=== PATIENT | female | born 1935 | race Caucasian/White ===

== ENCOUNTER 2017-03-12 11:39 | Inpatient (IN) | payer MEDICARE ==
[~2017-03-12] VITALS: Ht 157.5 cm; Wt 72.9 kg
[2017-03-12] VITALS (18 sets, daily range): BP systolic 122–167; BP diastolic 77–103; PULSE 90–131; RESP 14–18; TEMP 97.7–98.8; O2SAT 92–97
[~2017-03-12 11:39] MED LIST: ACET-166 PO; AMLO5TAB2 PO; ATOR40TA16 PO; DONE5TAB7 PO; GABA300C5 PO; GLIM2TAB PO; LEVO50TA4 PO; LORA-373 PO; METF1000 PO; METO50TA11 PO; TRAM50TA PO; VENL150T PO
[2017-03-12] MEDS ORDERED: DILTIAZEM HCL 25 MG/5 ML VIAL IV ONE (12:00)
[2017-03-12] MEDS ORDERED: SODIUM CHLORID 0.9% 500 ML INJ 500 ML IV ONE (12:15)
[2017-03-12 12:24] LABS: AUTOMATED NEUTROPHIL # 8.9 TH/MM3 (1.8-7.7); BASOPHIL # 0.1 TH/MM3 (0-0.2); BASOPHIL % 0.6 % (0.0-2.0); EOSINOPHIL # 0.1 TH/MM3 (0-0.4); EOSINOPHIL % 0.4 % (0.0-4.0); HEMATOCRIT 34.6 % (35.0-46.0); HEMO FLAGS DIFF FINAL; LYMPH % 11.1 % (9.0-44.0); LYMPHOCYTE # 1.3 TH/MM3 (1.0-4.8); MEAN CELL VOLUME 86.7 FL (80.0-100.0); MEAN CORPUSCULAR HEMOGLOBIN 27.5 PG (27.0-34.0); MEAN CORPUSCULAR HGB CONC 31.8 % (32.0-36.0); MONO % 8.8 % (0.0-8.0); NEUT % 79.1 % (16.0-70.0); PLATELET COUNT 302 TH/MM3 (150-450); RED BLOOD COUNT 3.99 MIL/MM3 (4.00-5.30); RED CELL DISTRIBUTION WIDTH 15.7 % (11.6-17.2); WHITE BLOOD COUNT 11.3 TH/MM3 (4.0-11.0)
[2017-03-12 12:31] LABS: APTT (PATIENT) 26.1 SEC (24.3-30.1); INTERNATIONAL NORMALIZED RATIO 1.3 RATIO
[2017-03-12] MEDS ORDERED: DAPA1TAB PO (12:37)
[2017-03-12] MEDS ORDERED: CHOL50008 PO (12:37)
--- NOTE | 2017-03-12 12:38 | RADRPT ---
EXAM DATE/TIME: 03/12/2017 12:12 [facility] COMPARISON: No previous studies available for comparison. INDICATIONS : Chest pain, fell out of bed this morning MEDICAL HISTORY : Cardiovascular disease. Diabetes mellitus type II. Hypertension. SURGICAL HISTORY : Appendectomy. Cholecystectomy. Hysterectomy. ENCOUNTER: Initial ACUITY: 1 day PAIN SCORE: 2/10 LOCATION: Bilateral chest FINDINGS: A single view of the chest demonstrates cardiomegaly and increased pulmonary vascularity. Minimal lef t basilar atelectasis/scarring. No consolidation or pleural effusion. Osseous structures are intact. CONCLUSION: 1. Cardiomegaly with increased pulmonary vascularity. 2. Left basilar atelectasis/scarring. Bony Obrien MD on March 12, 2017 at 12:30 Board Certified Radiologist. This report was verified electronically.
[2017-03-12 12:43] LABS: ANION GAP 12 MEQ/L (5-15); BICARBONATE 21.2 MEQ/L (21.0-32.0); BLOOD UREA NITROGEN 33 MG/DL (7-18); CHLORIDE 102 MEQ/L (98-107); GLOMERULAR FILTRATION RATE 32 ML/MIN (>89); MAGNESIUM 1.8 MG/DL (1.5-2.5); POTASSIUM 3.8 MEQ/L (3.5-5.1); SODIUM (NA) 135 MEQ/L (136-145)
--- NOTE | 2017-03-12 12:49 | PD ---
HPI Chief Complaint: Cardiac Complaint Time Seen by Provider: 11:52 Travel History International Travel<30 days: No Contact w/Intl Traveler<30days: No Traveled to known affect area: No History of Present Illness HPI 81yo F with PMH of HTN, HLD, hypothyroidism, DM presents to the ED in afib RVR. Pt was found on the floor at her home by relative and was too weak to get up. Pt does not remember what happened or if she fell from her bed. Pt is AAOx3 and is not complaining of anything. Pt was found in afib in 170s and given cardizem 20mg IV. Pt was in afib in the 130s when she arrived in the ED. Pt given cardizem 23mg IV and HR was in the 80s to 90s. Denies any fever, chest pain, sob, n/v, abdominal pain, focal weakness or numbness. PFSH Past Medical History Anxiety: Yes Depression: Yes Cancer: Yes Cardiac Catheterization: Yes Cardiovascular Problems: Yes (ANGINA) High Cholesterol: Yes Chemotherapy: No Chest Pain: Yes Coronary Artery Disease: Yes Diabetes: Yes Patient Takes Glucophage: No Diminished Hearing: No Gastrointestinal Disorders: Yes (maybe ) Genitourinary: No Hypertension: Yes Musculoskeletal: Yes (CHRONIC BACK PAIN ) Neurologic: Yes (NEUROPATHY) Psychiatric: Yes Reproductive: No Respiratory: No Radiation Therapy: No Thyroid Disease: Yes Influenza Vaccination: Yes ?: Not Menopausal: Yes Past Surgical History Appendectomy: Yes Cholecystectomy: Yes Hysterectomy: Yes Tonsillectomy: Yes Other Surgery: Yes (hysterectomy) Social History Alcohol Use: Yes (RARELY) Tobacco Use: Yes (40 years ago) Substance Use: No Allergies-Medications (Allergen,Severity, Reaction): Coded Allergies: No Known Allergies (Unverified , 03/12/17) Reported Meds & Prescriptions Reported Meds & Active Scripts Active Reported Vitamin D3 (Cholecalciferol) 5,000 Unit Tab 5,000 Units PO DAILY Farxiga (Dapagliflozin) 5 Mg Tab 5 Mg PO DAILY Acetaminophen/Codeine #3 300-30 mg (Acetaminophen W/ Codeine) 1 Tab Tab 1 Tab PO Q8HR Amlodipine (Amlodipine Besylate) 5 Mg Tab 5 Mg PO DAILY Donepezil 5 Mg Tab 5 Mg PO DAILY Gabapentin 300 Mg Cap 300 Mg PO TID Glimepiride 2 Mg Tab 2 Mg PO DAILY Take with breakfast or first main meal Levothyroxine (Levothyroxine Sodium) 50 Mcg Tab 50 Mcg PO DAILY Lorazepam 0.5 Mg Tab 1 Mg PO TID PRN Metformin (Metformin HCl) 1,000 Mg Tab 1,000 Mg PO BIDPC With meals Metoprolol Succinate ER 24 HR (Metoprolol Succinate) 50 Mg Tab 50 Mg PO HS Tramadol (Tramadol HCl) 50 Mg Tab 100 Mg PO Q6HR PRN Venlafaxine ER 24 HR (Venlafaxine HCl) 150 Mg Tab 150 Mg PO DAILY Review of Systems Except as stated in HPI: all other systems reviewed are Neg Physical Exam Narrative GENERAL: 81yo F in mild distress. SKIN: Focused skin assessment warm/dry. HEAD: Atraumatic. Normocephalic. EYES: Pupils equal and round. No scleral icterus. No injection or drainage. ENT: No nasal bleeding or discharge. Mucous membranes pink and moist. NECK: Trachea midline. No JVD. CARDIOVASCULAR: Regular rate and rhythm. No murmur appreciated. RESPIRATORY: No accessory muscle use. Clear to auscultation. Breath sounds equal bilaterally. GASTROINTESTINAL: Abdomen soft, non-tender, nondistended. RECTAL: Yellow stool. Negative hemaprompt. MUSCULOSKELETAL: No obvious deformities. No clubbing. No cyanosis. No edema. NEUROLOGICAL: Awake and alert. No obvious cranial nerve deficits. Motor grossly within normal limits. Normal speech. PSYCHIATRIC: Appropriate mood and affect; insight and judgment normal. Data Data Last Documented VS Vital Signs Date Time Temp Pulse Resp B/P Pulse Ox O2 Delivery O2 Flow Rate FiO2 03/12/17 13:26 102 16 144/99 95 Nasal Cannula 2 03/12/17 11:47 97.7 Orders Diltiazem Inj (Cardizem Inj) (03/12/17 12:00) Basic Metabolic Panel (Bmp) (03/12/17 12:02) Ckmb (Isoenzyme) Profile (03/12/17 12:02) Complete Blood Count With Diff (03/12/17 12:02) Magnesium (Mg) (03/12/17 12:02) Prothrombin Time / Inr (Pt) (03/12/17 12:02) Act Partial Throm Time (Ptt) (03/12/17 12:02) Troponin I (03/12/17 12:02) Chest, Single Ap (03/12/17 12:02) Ecg Monitoring (03/12/17 12:02) Iv Access Insert/Monitor (03/12/17 12:02) Oximetry (03/12/17 12:02) Oxygen Administration (03/12/17 12:02) Urinalysis - C+S If Indicated (03/12/17 12:02) Lactic Acid Sepsis Protocol (03/12/17 12:02) Blood Culture (03/12/17 12:02) Type And Screen (03/12/17 12:02) Sodium Chlorid 0.9% 500 Ml Inj (Ns 500 M (03/12/17 12:15) Ct Brain W/O Iv Contrast(Rout) (03/12/17 ) Vital Signs (Adult) Q15MX4,Q4H (03/12/17 12:53) Manager Drive / Telemetry ROMMEL.Q8H (03/12/17 12:53) Cardiac Rhythm ROMMEL.Q8H (03/12/17 12:53) Notify Dr: Other (03/12/17 12:53) Diltiazem Inj (Cardizem Inj) (03/12/17 13:00) Admit Order (Ed Use Only) (03/12/17 13:43) Consult Cardiology (03/12/17 ) Labs Laboratory Tests Test 03/12/17 12:00 White Blood Count 11.3 TH/MM3 Red Blood Count 3.99 MIL/MM3 Hemoglobin 11.0 GM/DL Hematocrit 34.6 % Mean Corpuscular Volume 86.7 FL Mean Corpuscular Hemoglobin 27.5 PG Mean Corpuscular Hemoglobin 31.8 % Concent Red Cell Distribution Width 15.7 % Platelet Count 302 TH/MM3 Mean Platelet Volume 8.5 FL Neutrophils (%) (Auto) 79.1 % Lymphocytes (%) (Auto) 11.1 % Monocytes (%) (Auto) 8.8 % Eosinophils (%) (Auto) 0.4 % Basophils (%) (Auto) 0.6 % Neutrophils # (Auto) 8.9 TH/MM3 Lymphocytes # (Auto) 1.3 TH/MM3 Monocytes # (Auto) 1.0 TH/MM3 Eosinophils # (Auto) 0.1 TH/MM3 Basophils # (Auto) 0.1 TH/MM3 CBC Comment DIFF FINAL Differential Comment Prothrombin Time 14.0 SEC Prothromb Time International 1.3 RATIO Ratio Activated Partial 26.1 SEC Thromboplast Time Sodium Level 135 MEQ/L Potassium Level 3.8 MEQ/L Chloride Level 102 MEQ/L Carbon Dioxide Level 21.2 MEQ/L Anion Gap 12 MEQ/L Blood Urea Nitrogen 33 MG/DL Creatinine 1.57 MG/DL Estimat Glomerular Filtration 32 ML/MIN Rate Random Glucose 213 MG/DL Lactic Acid Level 2.7 mmol/L Calcium Level 9.3 MG/DL Magnesium Level 1.8 MG/DL Total Creatine Kinase 77 U/L Troponin I LESS THAN 0.02 NG/ML Blood Type O POSITIVE Antibody Screen NEGATIVE Blood Bank Comment MDM Medical Decision Making Medical Screen Exam Complete: Yes Emergency Medical Condition: Yes Interpretation(s) EKG: Afib at 126bpm. Normal axis. Laboratory Tests Test 03/12/17 12:00 White Blood Count 11.3 TH/MM3 (4.0-11.0) Red Blood Count 3.99 MIL/MM3 (4.00-5.30) Hemoglobin 11.0 GM/DL (11.6-15.3) Hematocrit 34.6 % (35.0-46.0) Mean Corpuscular Volume 86.7 FL (80.0-100.0) Mean Corpuscular Hemoglobin 27.5 PG (27.0-34.0) Mean Corpuscular Hemoglobin 31.8 % Concent (32.0-36.0) Red Cell Distribution Width 15.7 % (11.6-17.2) Platelet Count 302 TH/MM3 (150-450) Mean Platelet Volume 8.5 FL (7.0-11.0) Neutrophils (%) (Auto) 79.1 % (16.0-70.0) Lymphocytes (%) (Auto) 11.1 % (9.0-44.0) Monocytes (%) (Auto) 8.8 % (0.0-8.0) Eosinophils (%) (Auto) 0.4 % (0.0-4.0) Basophils (%) (Auto) 0.6 % (0.0-2.0) Neutrophils # (Auto) 8.9 TH/MM3 (1.8-7.7) Lymphocytes # (Auto) 1.3 TH/MM3 (1.0-4.8) Monocytes # (Auto) 1.0 TH/MM3 (0-0.9) Eosinophils # (Auto) 0.1 TH/MM3 (0-0.4) Basophils # (Auto) 0.1 TH/MM3 (0-0.2) CBC Comment DIFF FINAL Differential Comment Prothrombin Time 14.0 SEC (9.8-11.6) Prothromb Time International 1.3 RATIO Ratio Activated Partial 26.1 SEC Thromboplast Time (24.3-30.1) Sodium Level 135 MEQ/L (136-145) Potassium Level 3.8 MEQ/L (3.5-5.1) Chloride Level 102 MEQ/L (98-107) Carbon Dioxide Level 21.2 MEQ/L (21.0-32.0) Anion Gap 12 MEQ/L (5-15) Blood Urea Nitrogen 33 MG/DL (7-18) Creatinine 1.57 MG/DL (0.50-1.00) Estimat Glomerular Filtration 32 ML/MIN (>89) Rate Random Glucose 213 MG/DL (74-106) Lactic Acid Level 2.7 mmol/L (0.4-2.0) Calcium Level 9.3 MG/DL (8.5-10.1) Magnesium Level 1.8 MG/DL (1.5-2.5) Total Creatine Kinase 77 U/L (26-192) Troponin I LESS THAN 0.02 NG/ML (0.02-0.05) Blood Type O POSITIVE Antibody Screen NEGATIVE Blood Bank Comment Last Impressions Chest X-Ray 03/12/17 1202 Signed Impressions: Service Date/Time: Sunday, March 12, 2017 12:12 - CONCLUSION: 1. Cardiomegaly with increased pulmonary vascularity. 2. Left basilar atelectasis/scarring. Bony Obrien MD Head CT 03/12/17 0000 Signed Impressions: Service Date/Time: Sunday, March 12, 2017 13:09 - CONCLUSION: Negative for an acute process. Kee Robles MD FACR Differential Diagnosis Infectious cause vs. UTI vs. dehydration vs. Narrative Course 81yo F with no history of afib here with afib in RVR. Pt required 2 IV doses of cardizem and now is on a cardizem drip. Rate is controlled on cardizem drip. BP is stable. Labs reviewed, mild leukocytosis at 11.3. BUN/creatinine also mildly elevated. Lactic acid mildly elevated at 2.7. CXR showed cardiomegaly. Left basilar atelectasis. CT brain negative. I discussed case with Dr. Thorne and pt is accepted under her care in [facility]. Placed consult for Dr. Eaton. Critical Care Narrative Aggregate critical care time was 40 minutes. Time to perform other separately billable procedures was not included in the critical care time. My time did not include minutes spent treating any other patients simultaneously or on activities that did not directly contribute to the patient's treatment. The services I provided to this patient were to treat and/or prevent clinically significant deterioration that could result in: cardiovascular collapse or . I provided critical care services requiring my management, as noted below: Chart data review, documentation time, medication orders and management, vital sign assessments/reviewing monitor data, ordering and reviewing lab tests, ordering and interpreting/reviewing x-rays and diagnostic studies, care of the patient and discussion of the patient with the admitting physicians. Diagnosis Primary Impression: Atrial fibrillation with RVR Admitting Information Admitting Physician Requests: it Marlen Feliz DO March 12, 2017 12:49
[2017-03-12 12:58] LABS: CREATINE KINASE 77 U/L (26-192)
[2017-03-12] MEDS ORDERED: DILTIAZEM INJ 125 MG in SODIUM CHLORIDE 0.9% INJ 100 ML IV SCH (13:00)
--- NOTE | 2017-03-12 13:23 | RADRPT ---
EXAM DATE/TIME: 03/12/2017 13:09 [facility] COMPARISON: No previous studies available for comparison. INDICATIONS : Patient found down. Weakness, cool and clammy. Patient was in a-fib when evac arrived. RADIATION DOSE: 37.97 CTDIvol (mGy) MEDICAL HISTORY : Cardiovascular disease. Hypertension. SURGICAL HISTORY : Appendectomy. Cholecystectomy.Hysterectomy. ENCOUNTER: Initial ACUITY: 1 day PAIN SCALE: 6/10 LOCATION: cranial TECHNIQUE: Multiple contiguous axial images were obtained of the head. Using automated exposure control and adj ustment of the mA and/or kV according to patient size, radiation dose was kept as low as reasonably a chievable to obtain optimal diagnostic quality images. FINDINGS: CEREBRUM: The ventricles are normal for age. No evidence of midline shift, mass lesion, hemorrhage or acute in farction. No extra-axial fluid collections are seen. POSTERIOR FOSSA: The cerebellum and brainstem are intact. The 4th ventricle is midline. The cerebellopontine angle i s unremarkable. EXTRACRANIAL: The visualized portion of the orbits is intact. SKULL: Incidental venous lakes are seen in the diploic space of the occiput. CONCLUSION: Negative for an acute process. Kee Robles MD FACR on March 12, 2017 at 13:20 Board Certified Radiologist. This report was verified electronically.
[2017-03-12 14:16] LABS: LACTIC ACID GHOST NOT REPORTABLE
[2017-03-12] MEDS ORDERED: NALOXONE HCL 0.4 MG/ML AMP IV PRN (14:30)
[2017-03-12] MEDS ORDERED: SODIUM CHLORIDE 0.9% FLUSH 10 ML FLUSH IV FLUSH PRN (14:30)
[2017-03-12 14:58] LABS: BLOOD, URINE NEG (NEG); GLUCOSE,URINE 1000 mg/dL (NEG); KETONE, URINE NEG (NEG); NITRITE,URINE NEG (NEG); SQUAMOUS EPITHELIAL CELL URINE <1 /hpf (0-5); URINE COLOR YELLOW (YELLW/STRAW)
[2017-03-12] MEDS ORDERED: DIGOXIN 0.5 MG/2 ML VIAL IV PUSH ONE (15:00)
[2017-03-12 15:01] LABS: COMMENT (UR) CATH-CULT NOT IND; CULTURE IF INDICATED CATH CULTURE NOT IND
[2017-03-12] MEDS ORDERED: ENALAPRIL MALEATE 5 MG TAB PO ONE (17:30)
[2017-03-12] MEDS ORDERED: metFORMIN HCL 500 MG TAB PO SCH (18:00)
[2017-03-12] MEDS ORDERED: GLUCAGON 1 MG/ML VIAL OTHER PRN (18:15)
[2017-03-12] MEDS ORDERED: DEXTROSE 50% IN WATER 50 ML VIAL(D50) IV PUSH PRN (18:15)
--- NOTE | 2017-03-12 18:18 | HHI.HP ---
History of Present Illness Primary Care Physician Dereje Thorne, DO Admission Diagnosis Afib RVR Diagnoses: History of Present Illness pt found at home on floor unknown how long she was there she does not remember evac shows afib rvr eventually controlled with cardizem Review of Systems Neurologic: COMPLAINS OF: Poor Balance Past Family Social History Allergies: Coded Allergies: No Known Allergies (Unverified , 03/12/17) Past Medical History diabetes II htn azds Past Surgical History COLEMAN Reported Medications Reported Meds & Active Scripts Active Reported Vitamin D3 (Cholecalciferol) 5,000 Unit Tab 5,000 Units PO DAILY Farxiga (Dapagliflozin) 5 Mg Tab 5 Mg PO DAILY Acetaminophen/Codeine #3 300-30 mg (Acetaminophen W/ Codeine) 1 Tab Tab 1 Tab PO Q8HR Amlodipine (Amlodipine Besylate) 5 Mg Tab 5 Mg PO DAILY Donepezil 5 Mg Tab 5 Mg PO DAILY Gabapentin 300 Mg Cap 300 Mg PO TID Glimepiride 2 Mg Tab 2 Mg PO DAILY Take with breakfast or first main meal Levothyroxine (Levothyroxine Sodium) 50 Mcg Tab 50 Mcg PO DAILY Lorazepam 0.5 Mg Tab 1 Mg PO TID PRN Metformin (Metformin HCl) 1,000 Mg Tab 1,000 Mg PO BIDPC With meals Metoprolol Succinate ER 24 HR (Metoprolol Succinate) 50 Mg Tab 50 Mg PO HS Tramadol (Tramadol HCl) 50 Mg Tab 100 Mg PO Q6HR PRN Venlafaxine ER 24 HR (Venlafaxine HCl) 150 Mg Tab 150 Mg PO DAILY Active Ordered Medications Inpatient Medications Acetaminophen/ Codeine Phosphate 1 tab 1 tab Q8H PRN PO PAIN; Start 03/12/17 at 15:15 Amlodipine Besylate (Norvasc) 5 mg DAILY PO ; Start 03/13/17 at 09:00 Cholecalciferol (Vitamin D3) 5,000 units DAILY PO ; Start 03/13/17 at 09:00 Digoxin (Lanoxin Inj) 0.25 mg ONCE ONCE IV PUSH Last administered on 03/12/17 15:09; Start 03/12/17 at 15:00; Stop 03/12/17 at 15:01; Status DC Diltiazem HCl 23 mg 23 mg ONCE ONCE IV Last administered on 03/12/17 12:11; Start 03/12/17 at 12:00; Stop 03/12/17 at 12:01; Status DC Diltiazem HCl/ Sodium Chloride (Cardizem Inj/NS Inj) 125 ml @ 0 mls/hr TITRATE IV ; Start 03/12/17 at 17:00 Donepezil HCl (Aricept) 5 mg DAILY PO ; Start 03/13/17 at 09:00 Enalapril Maleate (Vasotec) 5 mg BID PO ; Start 03/12/17 at 21:00 Gabapentin (Neurontin) 300 mg BID PO ; Start 03/12/17 at 21:00 Glimepiride (Amaryl) 2 mg DAILY PO ; Start 03/13/17 at 09:00 Levothyroxine Sodium (Synthroid) 50 mcg DAILY@06 PO ; Start 03/13/17 at 06:00 Lorazepam (Ativan) 1 mg TID PRN PO ANXIETY; Start 03/12/17 at 14:30 Metformin HCl (Glucophage) 1,000 mg BIDPC PO Last administered on 03/12/17t 17: 28; Start 03/12/17 at 18:00 Metoprolol Succinate (Toprol Xl) 50 mg HS PO ; Start 03/12/17 at 21:00 Naloxone HCl (Narcan Inj) 0.4 mg UNSCH PRN IV SEE LABEL COMMENTS; Start at 14:30 Non-Formulary Medication 5 mg DAILY PO BSM; Start 03/13/17 at 09:00; Status UNV Sodium Chloride (NS 500 ml Inj) 500 ml @ 500 mls/hr BOLUS ONCE IV ; Start 03/12 at 12:15; Stop 03/12/17 at 13:14; Status DC Sodium Chloride (NS Flush) 2 ml BID IV FLUSH ; Start 03/12/17 at 21:00 Venlafaxine HCl (Effexor Xr) 150 mg DAILY PO ; Start 03/13/17 at 09:00 Family History bboth parents are with heart disease Social History has not smoked or drank for over 30 years Physical Exam Vital Signs Vital Signs Date Time Temp Pulse Resp B/P Pulse Ox O2 Delivery O2 Flow Rate FiO2 03/12/17 17:00 130 18 167/103 97 03/12/17 17:00 121 03/12/17 16:58 117 03/12/17 15:44 130 16 122/89 96 Nasal Cannula 2 03/12/17 15:09 131 14 122/89 95 Nasal Cannula 2 03/12/17 14:39 Nasal Cannula 2.00 03/12/17 14:34 117 17 147/86 95 Nasal Cannula 2 03/12/17 14:10 123 16 140/87 96 Nasal Cannula 2 03/12/17 13:26 102 16 144/99 95 Nasal Cannula 2 03/12/17 12:12 95 Nasal Cannula 3 03/12/17 12:12 92 16 146/90 95 Nasal Cannula 3 03/12/17 11:51 117 16 146/90 95 Nasal Cannula 3 03/12/17 11:47 97.7 129 16 146/90 92 Physical Exam GENERAL: This is a well-nourished, well-developed patient, in no apparent distress. SKIN: No rashes, ecchymoses or lesions. Cool and dry. HEAD: Atraumatic. Normocephalic. No temporal or scalp tenderness. EYES: Pupils equal round and reactive. Extraocular motions intact. No scleral icterus. No injection or drainage. ENT: Nose without bleeding, purulent drainage or septal hematoma. Throat without erythema, tonsillar hypertrophy or exudate. Uvula midline. Airway patent. NECK: Trachea midline. No JVD or lymphadenopathy. Supple, nontender, no meningeal signs. CARDIOVASCULAR: Irregular rate and rythm RESPIRATORY: Clear to auscultation. Breath sounds equal bilaterally. No wheezes , rales, or rhonchi. GASTROINTESTINAL: Abdomen soft, non-tender, nondistended. No hepato-splenomegaly , or palpable masses. No guarding. MUSCULOSKELETAL: Extremities without clubbing, cyanosis, or edema. No joint tenderness, effusion, or edema noted. No calf tenderness. Negative Homans sign bilaterally. NEUROLOGICAL: Awake and alert. Cranial nerves II through XII intact. Motor and sensory grossly within normal limits. Five out of 5 muscle strength in all muscle groups. Normal speech. Laboratory Laboratory Tests Test 03/12/17 03/12/17 03/12/17 12:00 14:10 15:32 White Blood Count 11.3 Red Blood Count 3.99 Hemoglobin 11.0 Hematocrit 34.6 Mean Corpuscular Volume 86.7 Mean Corpuscular Hemoglobin 27.5 Mean Corpuscular Hemoglobin 31.8 Concent Red Cell Distribution Width 15.7 Platelet Count 302 Mean Platelet Volume 8.5 Neutrophils (%) (Auto) 79.1 Lymphocytes (%) (Auto) 11.1 Monocytes (%) (Auto) 8.8 Eosinophils (%) (Auto) 0.4 Basophils (%) (Auto) 0.6 Neutrophils # (Auto) 8.9 Lymphocytes # (Auto) 1.3 Monocytes # (Auto) 1.0 Eosinophils # (Auto) 0.1 Basophils # (Auto) 0.1 CBC Comment DIFF FINAL Differential Comment Prothrombin Time 14.0 Prothromb Time International 1.3 Ratio Activated Partial 26.1 Thromboplast Time Sodium Level 135 Potassium Level 3.8 Chloride Level 102 Carbon Dioxide Level 21.2 Anion Gap 12 Blood Urea Nitrogen 33 Creatinine 1.57 Estimat Glomerular Filtration 32 Rate Random Glucose 213 Lactic Acid Level 2.7 1.8 Calcium Level 9.3 Magnesium Level 1.8 Total Creatine Kinase 77 Troponin I LESS THAN 0.02 Blood Type O POSITIVE Antibody Screen NEGATIVE Blood Bank Comment Urine Color YELLOW Urine Turbidity CLEAR Urine pH 6.0 Urine Specific Aubrey 1.033 Urine Protein 100 Urine Glucose (UA) 1000 Urine Ketones NEG Urine Occult Blood NEG Urine Nitrite NEG Urine Bilirubin NEG Urine Urobilinogen LESS THAN 2.0 Urine Leukocyte Esterase NEG Urine RBC LESS THAN 1 Urine WBC 1 Urine Squamous Epithelial <1 Cells Urine Bacteria NONE Microscopic Urinalysis Comment CATH-CULT NOT IND Date/Time Procedure Status Source Growth 03/12/17 12:05 Aerobic Blood Culture Received Blood Peripheral Pending 03/12/17 12:05 Anaerobic Blood Culture Received Blood Peripheral Pending Result Diagram: 03/12/17 1200 03/12/17 1200 Imaging Last 24 hours Impressions Chest X-Ray 03/12/17 1202 Signed Impressions: Service Date/Time: Sunday, March 12, 2017 12:12 - CONCLUSION: 1. Cardiomegaly with increased pulmonary vascularity. 2. Left basilar atelectasis/scarring. Bony Obrien MD Head CT 03/12/17 0000 Signed Impressions: Service Date/Time: Sunday, March 12, 2017 13:09 - CONCLUSION: Negative for an acute process. Kee Robles MD FACR Course hr improved with cardizem bp coming down Assessment and Plan Problem List: (1) Diabetes 1.5, managed as type 2 Status: Acute Plan: ss insuline coverage resume po meds (2) Hypertension Status: Acute Plan: continue home meds add cardizem and vasotec (3) New onset a-fib Status: Acute Plan: cardizem and digoxin for rate control will need coag if rhythm persists Assessment and Plan afib rvr stabilized Discussed Condition With patient Dereje Thorne DO March 12, 2017 18:18
[2017-03-12] MEDS: SODIUM CHLORIDE 0.9% FLUSH 10 ML FLUSH IV FLUSH SCH (21:00)
[2017-03-12] MEDS: DILTIAZEM INJ 125 MG in SODIUM CHLORIDE 0.9% INJ 100 ML IV SCH (21:03)
[2017-03-12] MEDS: LOW DOSE INSULIN NOVOLIN REGULAR SUPPLEMENTAL SCALE SQ SCH (21:40)
[2017-03-12] MEDS: ENALAPRIL MALEATE 5 MG TAB PO SCH (21:58)
[2017-03-12] MEDS: GABAPENTIN 300 MG CAP PO SCH (21:59)
[2017-03-12] MEDS: METOPROLOL SUCCINATE 50 MG EXTENDED RELEASE TAB PO SCH (21:59)
[2017-03-12] MEDS ORDERED: CODEINE PO SCH (22:00)
[2017-03-12] MEDS ORDERED: [UNRECOGNIZED DRUG - OTHER] PO SCH (22:00)
[2017-03-12] MEDS ORDERED: ACETAMINOPHEN PO SCH (22:00)
[2017-03-13] VITALS (21 sets, daily range): BP systolic 122–153; BP diastolic 62–85; PULSE 67–134; RESP 16–20; TEMP 97–98; O2SAT 93–97
[2017-03-13] MEDS: ACETAMINOPHEN/CODEINE 300 MG/30 MG TAB PO PRN ×2 (00:26→16:14)
[2017-03-13] MEDS: LORazepam 0.5 MG TAB PO PRN (01:59)
[2017-03-13 05:53] LABS: BICARBONATE 23.3 MEQ/L (21.0-32.0); POTASSIUM 3.7 MEQ/L (3.5-5.1)
[2017-03-13] MEDS: LOW DOSE INSULIN NOVOLIN REGULAR SUPPLEMENTAL SCALE SQ SCH ×4 (06:10→21:46)
[2017-03-13] MEDS: LEVOTHYROXINE SODIUM 50 MCG TAB PO SCH (06:11)
--- NOTE | 2017-03-13 07:46 | HHI.PR ---
Subjective Remarks Patient seen at bedside. Resting comfortably. AFIB at a controlled rate. Alert and oriented to self only. Cooperative Objective Vital Signs Date Time Temp Pulse Resp B/P Pulse Ox O2 Delivery O2 Flow Rate FiO2 03/13/17 06:00 90 03/13/17 05:00 95 03/13/17 04:00 80 03/13/17 03:45 95 Nasal Cannula 2.00 03/13/17 03:45 97.6 75 16 123/68 95 03/13/17 03:17 96 Nasal Cannula 2.00 03/13/17 03:00 71 03/13/17 02:00 67 03/13/17 01:00 78 03/13/17 00:00 89 03/12/17 23:20 95 Nasal Cannula 2.00 03/12/17 23:20 98.5 90 18 133/82 95 03/12/17 23:00 122 03/12/17 22:00 96 03/12/17 21:00 94 03/12/17 20:00 126 03/12/17 19:20 98.8 104 18 141/77 97 03/12/17 19:20 97 Nasal Cannula 2.00 03/12/17 19:00 122 03/12/17 18:00 112 03/12/17 17:00 130 18 167/103 97 03/12/17 17:00 121 03/12/17 16:58 117 03/12/17 15:44 130 16 122/89 96 Nasal Cannula 2 03/12/17 15:09 131 14 122/89 95 Nasal Cannula 2 03/12/17 14:39 Nasal Cannula 2.00 03/12/17 14:34 117 17 147/86 95 Nasal Cannula 2 03/12/17 14:10 123 16 140/87 96 Nasal Cannula 2 03/12/17 13:26 102 16 144/99 95 Nasal Cannula 2 03/12/17 12:12 95 Nasal Cannula 3 03/12/17 12:12 92 16 146/90 95 Nasal Cannula 3 03/12/17 11:51 117 16 146/90 95 Nasal Cannula 3 03/12/17 11:47 97.7 129 16 146/90 92 I/O 03/12/17 03/12/17 03/12/17 03/13/17 03/13/17 03/13/17 07:00 15:00 23:00 07:00 15:00 23:00 Intake Total 440 ml Output Total 175 ml Balance 265 ml Intake Oral 240 ml IV Total 200 ml Output Urine Total 175 ml # Bowel Movements 0 Result Diagram: 03/12/17 1200 03/13/17 0419 Imaging Last 72 hours Impressions Chest X-Ray 03/12/17 1202 Signed Impressions: Service Date/Time: Sunday, March 12, 2017 12:12 - CONCLUSION: 1. Cardiomegaly with increased pulmonary vascularity. 2. Left basilar atelectasis/scarring. Bony Obrien MD Head CT 03/12/17 0000 Signed Impressions: Service Date/Time: Sunday, March 12, 2017 13:09 - CONCLUSION: Negative for an acute process. Kee Robles MD FACR Objective Remarks GENERAL: Alert and cooperative SKIN: Warm and dry. HEAD: Normocephalic. EYES: No scleral icterus. No injection or drainage. NECK: Supple, trachea midline. No JVD or lymphadenopathy. CARDIOVASCULAR: Regular rate and rhythm without murmurs, gallops, or rubs. RESPIRATORY: Breath sounds equal bilaterally. No accessory muscle use. GASTROINTESTINAL: Abdomen soft, non-tender, nondistended. MUSCULOSKELETAL: No cyanosis, or edema. BACK: Nontender without obvious deformity. No CVA tenderness. Medications and IVs Current Medications Medications (Trade) Dose Ordered Sig/Trudy Route Start Time Stop Time Status Last Admin (NS Flush) 2 ml UNSCH PRN IV FLUSH 03/12/17 14:30 (NS Flush) 2 ml BID IV FLUSH 03/12/17 21:00 (Narcan Inj) 0.4 mg UNSCH PRN IV 03/12/17 14:30 (Norvasc) 5 mg DAILY PO 03/13/17 09:00 (Vitamin D3) 5,000 units DAILY PO 03/13/17 09:00 (Aricept) 5 mg DAILY PO 03/13/17 09:00 (Neurontin) 300 mg BID PO 03/12/17 21:00 03/12/17 21:59 (Amaryl) 2 mg DAILY PO 03/13/17 09:00 (Synthroid) 50 mcg DAILY@06 PO 03/13/17 06:00 03/13/17 06:11 (Ativan) 1 mg TID PRN PO 03/12/17 14:30 03/13/17 01:59 (Toprol Xl) 50 mg HS PO 03/12/17 21:00 03/12/17 21:59 (Effexor Xr) 150 mg DAILY PO 03/13/17 09:00 Acetaminophen/ Codeine Phosphate 1 tab 1 tab Q8H PRN PO 03/12/17 15:15 03/13/17 00:26 (Cardizem Inj/NS Inj) 125 ml @ 0 mls/hr TITRATE IV 03/12/17 17:00 03/12/17 21:03 (Vasotec) 5 mg BID PO 03/12/17 21:00 03/12/17 21:58 (D50w (Vial) Inj) 25 ml UNSCH PRN IV PUSH 03/12/17 18:15 (Glucagon Inj) 1 mg UNSCH PRN OTHER 03/12/17 18:15 Assessment and Plan Problem List: (1) Atrial fibrillation with RVR Status: Acute Plan: On Cardizem gtt. Rate controlled in 70's. Cardiology consulted. (2) Diabetes 1.5, managed as type 2 Status: Chronic Plan: Continue current medication. BS AC and HS. BS 141-213. Diet changed to diabetic diet. (3) Hypertension Status: Chronic Plan: Continue current medication regimen. B/P well controlled at 123/66 (4) Hypothyroid Status: Chronic Plan: On replacement . TSH, T4 level ordered (5) Hyperlipidemia Status: Chronic Plan: Not on statin. Lipid panel ordered for AM (6) Alzheimer disease Status: Chronic Plan: Patient alert to self only. Cooperative. Head CT with no acute findings. Continue Aricept (7) Fall Status: Acute Plan: Patient was found on floor prior to coming in CPK ordered for this AM. IVF ordered. Assessment and Plan Assessment and plan discussed with Dr. Thorne Labs ordered. Awaiting cardiology assessment Discussed Condition With Nursing Discharge Planning Will need to assess. Currently lives with daughter. Physician Attestation The exam, history, and the medical decision-making described in the above note were completed with the assistance of the mid-level provider. I reviewed and agree with the findings presented. I attest that I had a [id number] encounter with the patient on the same day, and personally performed and documented my assessment and findings in the medical record. Lesvia Grayson March 13, 2017 07:46 Dereje Thorne DO March 13, 2017 22:21
--- NOTE | 2017-03-13 07:46 | MB ---
cc: JAY JAYTEJA DATE OF CONSULTATION 03/12/2017 REASON FOR CONSULTATION Ms. Castillo is a pleasant 81 year-old female who was found by her daughter at home on the floor. She was found to be in atrial fibrillation with rapid ventricular response. She has not had any chest pain. She had occasional mild shortness of breath. She has been weak, tired and has not been taking her medications since Sunday. She lives alone, but has had difficulty taking care of herself recently. She has no previous history of atrial fibrillation or coronary artery disease. She was started on IV Diltiazem which was increased up to 20 mg per hour. She had a normal blood pressure, but increased heart rate despite therapy. PAST MEDICAL HISTORY Positive for: 1. Type 2 diabetes mellitus 2. Hypertension 3. Hypothyroidism PAST SURGICAL HISTORY Hysterectomy MEDICATIONS Include: 1. Vitamin D3 2. Farxiga 3. Tylenol with codeine 4. Amlodipine 5 mg a day 5. Donepezil 6. Gabapentin 7. Glimepiride 8. Levothyroxine 9. Lorazepam 10. Metformin 11. Metoprolol 50 mg q.h.s. 12. Tramadol 13. Venlafaxine ER ALLERGIES None SOCIAL HISTORY The patient quit smoking and drinking almost 30 years ago. She is accompanied by her daughter. She lives alone. FAMILY HISTORY Positive for heart disease in her parents. REVIEW OF SYSTEMS Otherwise negative. PHYSICAL EXAM Blood pressure 145/90, pulse 130 and irregular. HEAD, EYES, EARS, NOSE, AND THROAT: 2+carotid upstrokes. No bruits. LUNGS: Clear. HEART: Irregular with no murmur, gallop, rub. ABDOMEN: Soft, no bruits. EXTREMITIES: Without edema. 2+ distal pulses. NEUROLOGIC: Grossly nonfocal. Telemetry shows atrial fibrillation with rapid ventricular response. EKG shows atrial fibrillation 126 per minute with normal axis and otherwise normal intervals. LABS Hemoglobin 11.0, potassium 3.8, creatinine 1.6. CPK 77, troponin less than 0.02. DIAGNOSIS 1. Atrial fibrillation with rapid ventricular response. 2. Hypertension 3. Diabetes mellitus 4. Hypothyroidism 5. Renal insufficiency DISPOSITION Mrs. Castillo will be monitored on telemetry. We will continue IV Diltiazem which will be switched to p.o. Diltiazem. I added IV Digoxin for better rate control. We will closely monitor the Digoxin therapy due to her renal insufficiency. I will follow her for cardiology during her hospitalization. I will also see her back for followup in our office after discharge. She will eventually be a candidate for full anticoagulation due to her high CHADS-VASc score. MD KATARINA Beatty/GLENIS /7:36 PM 7:30 AM MTDErika
[2017-03-13] MEDS: SODIUM CHLOR 0.9% 1000 ML INJ 1,000 ML IV SCH ×2 (08:00→19:55)
[2017-03-13] MEDS: SODIUM CHLORIDE 0.9% FLUSH 10 ML FLUSH IV FLUSH SCH ×2 (09:00→21:00)
[2017-03-13] MEDS: VENLAFAXINE HCL XR 75 MG CAP PO SCH (09:00)
[2017-03-13] MEDS: GLIMEPIRIDE 2 MG TAB PO SCH (09:00)
[2017-03-13] MEDS ORDERED: DAPAGLIFLOZIN 5 MG PO SCH (09:00)
[2017-03-13] MEDS ORDERED: SODIUM CHLOR 0.45% 1000 ML INJ 1,000 ML IV SCH (09:00)
[2017-03-13] MEDS ORDERED: amLODIPine BESYLATE 5 MG TAB PO SCH (09:00)
[2017-03-13] MEDS: ENALAPRIL MALEATE 5 MG TAB PO SCH ×2 (09:00→21:41)
[2017-03-13] MEDS: GABAPENTIN 300 MG CAP PO SCH ×2 (09:01→21:41)
[2017-03-13] MEDS: DONEPEZIL HCL 5 MG TAB PO SCH (09:01)
[2017-03-13] MEDS: CHOLECALCIFEROL (VIT D3) 5000 UNIT CAP PO SCH (09:01)
[2017-03-13] MEDS: SODIUM CHLOR 0.45% 1000 ML INJ 1,000 ML IV SCH ×2 (09:02→21:40)
[2017-03-13] MEDS: BETAMETHASONE/CLOTRIMAZOLE CREAM 15 GM TOPICAL SCH ×2 (10:00→21:00)
[2017-03-13 10:07] LABS: AUTOMATED NEUTROPHIL # 6.4 TH/MM3 (1.8-7.7); BASOPHIL # 0.1 TH/MM3 (0-0.2); BASOPHIL % 0.9 % (0.0-2.0); EOSINOPHIL # 0.2 TH/MM3 (0-0.4); EOSINOPHIL % 2.6 % (0.0-4.0); HEMATOCRIT 33.4 % (35.0-46.0); HEMO FLAGS DIFF FINAL; LYMPH % 18.2 % (9.0-44.0); LYMPHOCYTE # 1.7 TH/MM3 (1.0-4.8); MEAN CELL VOLUME 86.2 FL (80.0-100.0); MEAN CORPUSCULAR HEMOGLOBIN 27.8 PG (27.0-34.0); MEAN CORPUSCULAR HGB CONC 32.3 % (32.0-36.0); MONO % 9.7 % (0.0-8.0); NEUT % 68.6 % (16.0-70.0); PLATELET COUNT 279 TH/MM3 (150-450); RED BLOOD COUNT 3.88 MIL/MM3 (4.00-5.30); WHITE BLOOD COUNT 9.3 TH/MM3 (4.0-11.0)
[2017-03-13 10:37] LABS: FREE T4 1.34 NG/DL (0.76-1.46)
[2017-03-13 10:40] LABS: CREATINE KINASE 47 U/L (26-192)
[2017-03-13] MEDS: DILTIAZEM INJ 125 MG in SODIUM CHLORIDE 0.9% INJ 100 ML IV SCH (16:11)
--- NOTE | 2017-03-13 16:30 | PD.CARD.PN ---
Subjective Subjective Remarks No CP or SOB, confused but pleasant Objective Medications Current Medications Medications (Trade) Dose Ordered Sig/Trudy Route Start Time Stop Time Status Last Admin (NS Flush) 2 ml UNSCH PRN IV FLUSH 03/12/17 14:30 (NS Flush) 2 ml BID IV FLUSH 03/12/17 21:00 (Narcan Inj) 0.4 mg UNSCH PRN IV 03/12/17 14:30 (Norvasc) 5 mg DAILY PO 03/13/17 09:00 03/13/17 09:01 (Vitamin D3) 5,000 units DAILY PO 03/13/17 09:00 03/13/17 09:01 (Aricept) 5 mg DAILY PO 03/13/17 09:00 03/13/17 09:01 (Neurontin) 300 mg BID PO 03/12/17 21:00 03/13/17 09:01 (Amaryl) 2 mg DAILY PO 03/13/17 09:00 03/13/17 09:00 (Synthroid) 50 mcg DAILY@06 PO 03/13/17 06:00 03/13/17 06:11 (Ativan) 1 mg TID PRN PO 03/12/17 14:30 03/13/17 01:59 (Toprol Xl) 50 mg HS PO 03/12/17 21:00 03/12/17 21:59 (Effexor Xr) 150 mg DAILY PO 03/13/17 09:00 03/13/17 09:00 Acetaminophen/ Codeine Phosphate 1 tab 1 tab Q8H PRN PO 03/12/17 15:15 03/13/17 16:14 (Cardizem Inj/NS Inj) 125 ml @ 0 mls/hr TITRATE IV 03/12/17 17:00 03/13/17 16:11 (Vasotec) 5 mg BID PO 03/12/17 21:00 03/13/17 09:00 (D50w (Vial) Inj) 25 ml UNSCH PRN IV PUSH 03/12/17 18:15 Glucagon 1 mg 1 mg UNSCH PRN OTHER 03/12/17 18:15 (NS 1000 ml Inj) 1,000 ml @ 84 mls/hr [id number] IV 03/13/17 08:00 Betamethasone/ Clotrimazole 1 applic 1 applic BID TOPICAL 03/13/17 09:00 (1/2 NS 1000 ml Inj) 1,000 ml @ 100 mls/hr Q10H IV 03/13/17 08:30 03/13/17 09:02 Vital Signs / I&O Vital Signs Date Time Temp Pulse Resp B/P Pulse Ox O2 Delivery O2 Flow Rate FiO2 03/13/17 11:00 76 03/13/17 11:00 96 Nasal Cannula 2.00 03/13/17 10:00 76 03/13/17 09:00 75 03/13/17 08:00 97 Nasal Cannula 2.00 03/13/17 08:00 75 03/13/17 08:00 97.5 73 20 128/77 97 03/13/17 06:00 90 03/13/17 05:00 95 03/13/17 04:00 80 03/13/17 03:45 95 Nasal Cannula 2.00 03/13/17 03:45 97.6 75 16 123/68 95 03/13/17 03:17 96 Nasal Cannula 2.00 03/13/17 03:00 71 03/13/17 02:00 67 03/13/17 01:00 78 03/13/17 00:00 89 03/12/17 23:20 95 Nasal Cannula 2.00 03/12/17 23:20 98.5 90 18 133/82 95 03/12/17 23:00 122 03/12/17 22:00 96 03/12/17 21:00 94 03/12/17 20:00 126 03/12/17 19:20 98.8 104 18 141/77 97 03/12/17 19:20 97 Nasal Cannula 2.00 03/12/17 19:00 122 03/12/17 18:00 112 03/12/17 17:00 130 18 167/103 97 03/12/17 17:00 121 03/12/17 16:58 117 I/O 03/12/17 03/12/17 03/12/17 03/13/17 03/13/17 03/13/17 07:00 15:00 23:00 07:00 15:00 23:00 Intake Total 440 ml Output Total 175 ml Balance 265 ml Intake Oral 240 ml IV Total 200 ml Output Urine Total 175 ml # Bowel Movements 0 Physical Exam GENERAL: In NAD, confused SKIN: Warm and dry. HEAD: Normocephalic. EYES: No scleral icterus. No injection or drainage. NECK: Supple, trachea midline. No JVD or lymphadenopathy. CARDIOVASCULAR: irregular rate and rhythm without murmurs, gallops, or rubs. RESPIRATORY: Breath sounds equal bilaterally. No accessory muscle use. GASTROINTESTINAL: Abdomen soft, non-tender, nondistended. MUSCULOSKELETAL: No cyanosis, or edema. Laboratory Laboratory Tests Test 03/13/17 03/13/17 04:19 09:30 Sodium Level 137 MEQ/L Potassium Level 3.7 MEQ/L Chloride Level 104 MEQ/L Carbon Dioxide Level 23.3 MEQ/L Anion Gap 10 MEQ/L Blood Urea Nitrogen 32 MG/DL Creatinine 1.42 MG/DL Estimat Glomerular Filtration 35 ML/MIN Rate Random Glucose 147 MG/DL Calcium Level 8.2 MG/DL White Blood Count 9.3 TH/MM3 Red Blood Count 3.88 MIL/MM3 Hemoglobin 10.8 GM/DL Hematocrit 33.4 % Mean Corpuscular Volume 86.2 FL Mean Corpuscular Hemoglobin 27.8 PG Mean Corpuscular Hemoglobin 32.3 % Concent Red Cell Distribution Width 16.0 % Platelet Count 279 TH/MM3 Mean Platelet Volume 8.1 FL Neutrophils (%) (Auto) 68.6 % Lymphocytes (%) (Auto) 18.2 % Monocytes (%) (Auto) 9.7 % Eosinophils (%) (Auto) 2.6 % Basophils (%) (Auto) 0.9 % Neutrophils # (Auto) 6.4 TH/MM3 Lymphocytes # (Auto) 1.7 TH/MM3 Monocytes # (Auto) 0.9 TH/MM3 Eosinophils # (Auto) 0.2 TH/MM3 Basophils # (Auto) 0.1 TH/MM3 CBC Comment DIFF FINAL Differential Comment Total Creatine Kinase 47 U/L Troponin I LESS THAN 0.02 NG/ML Free Thyroxine 1.34 NG/DL Thyroid Stimulating Hormone 1.870 uIU/ML 3rd Gen Imaging Last Impressions Chest X-Ray 03/12/17 1202 Signed Impressions: Service Date/Time: Sunday, March 12, 2017 12:12 - CONCLUSION: 1. Cardiomegaly with increased pulmonary vascularity. 2. Left basilar atelectasis/scarring. Bony Obrien MD Head CT 03/12/17 0000 Signed Impressions: Service Date/Time: Sunday, March 12, 2017 13:09 - CONCLUSION: Negative for an acute process. Kee Robles MD FACR Assessment and Plan Problem List: (1) Atrial fibrillation with RVR (2) Diabetes 1.5, managed as type 2 (3) Hypertension (4) Hyperlipidemia (5) Alzheimer disease (6) Hypothyroid Assessment and Plan Rate better controlled. Switch IV diltiazem to PO, continue metoprolol. Start anticoagulation with low dose Eliquis. Continue monitoring. Gracie Eaton MD March 13, 2017 16:30
--- NOTE | 2017-03-13 16:39 | EKG ---
Date Performed: 03/12/2017 Time Performed: 11:51:58 PTAGE: 81 years EKG: ATRIAL FLUTTER/TACHYCARDIA WITH RAPID VENTRICULAR RESPONSE RIGHT BUNDLE BRANCH BLOCK MODERA TE T-WAVE ABNORMALITY, CONSIDER LATERAL ISCHEMIA ABNORMAL ECG Compare to prior EKG, there is a new at rial flutter with a right bundle branch block. PREVIOUS TRACING : 05/31/1999 07.22 DOCTOR: Rajinder Smiley Interpretating Date/Time 03/13/2017 16:38:36
[2017-03-13] MEDS: METOPROLOL SUCCINATE 50 MG EXTENDED RELEASE TAB PO SCH (21:41)
[2017-03-13] MEDS: APIXABAN 2.5 MG TABLET PO SCH (21:41)
[2017-03-14] VITALS (26 sets, daily range): BP systolic 136–158; BP diastolic 94–98; PULSE 72–120; RESP 18; TEMP 97–98; O2SAT 92–96
[2017-03-14] MEDS: SODIUM CHLOR 0.9% 1000 ML INJ 1,000 ML IV SCH (03:20)
[2017-03-14] MEDS: SODIUM CHLOR 0.45% 1000 ML INJ 1,000 ML IV SCH ×2 (03:50→23:36)
[2017-03-14] MEDS: LEVOTHYROXINE SODIUM 50 MCG TAB PO SCH (04:02)
[2017-03-14] MEDS: LOW DOSE INSULIN NOVOLIN REGULAR SUPPLEMENTAL SCALE SQ SCH ×4 (04:12→20:37)
[2017-03-14 06:16] LABS: AUTOMATED NEUTROPHIL # 6.3 TH/MM3 (1.8-7.7); BASOPHIL # 0.1 TH/MM3 (0-0.2); BASOPHIL % 0.8 % (0.0-2.0); EOSINOPHIL # 0.2 TH/MM3 (0-0.4); EOSINOPHIL % 2.3 % (0.0-4.0); HEMATOCRIT 34.6 % (35.0-46.0); HEMO FLAGS DIFF FINAL; LYMPH % 15.9 % (9.0-44.0); LYMPHOCYTE # 1.4 TH/MM3 (1.0-4.8); MEAN CELL VOLUME 86.1 FL (80.0-100.0); MEAN CORPUSCULAR HEMOGLOBIN 26.8 PG (27.0-34.0); MEAN CORPUSCULAR HGB CONC 31.2 % (32.0-36.0); MONO % 11.3 % (0.0-8.0); NEUT % 69.7 % (16.0-70.0); PLATELET COUNT 260 TH/MM3 (150-450); RED BLOOD COUNT 4.02 MIL/MM3 (4.00-5.30); RED CELL DISTRIBUTION WIDTH 15.7 % (11.6-17.2)
[2017-03-14 06:38] LABS: BICARBONATE 23.3 MEQ/L (21.0-32.0); HDL CHOLESTEROL 37.4 MG/DL (40.0-60.0); MAGNESIUM 1.7 MG/DL (1.5-2.5); POTASSIUM 3.5 MEQ/L (3.5-5.1)
[2017-03-14] MEDS ORDERED: SODIUM PHOSPHATE INJ 15 MMOL in SODIUM CHLORIDE 0.9% INJ 150 ML IV ONE (07:00)
[2017-03-14] MEDS ORDERED: DILTIAZEM-CD 120 MG CAP ER PO SCH (09:00)
[2017-03-14] MEDS: MAGNESIUM SULFATE 1 GM PREMIX 100 ML IV SCH ×2 (09:08→09:17)
[2017-03-14] MEDS: VENLAFAXINE HCL XR 75 MG CAP PO SCH (09:10)
[2017-03-14] MEDS: ENALAPRIL MALEATE 5 MG TAB PO SCH ×2 (09:10→20:37)
[2017-03-14] MEDS: APIXABAN 2.5 MG TABLET PO SCH ×2 (09:10→20:37)
[2017-03-14] MEDS: GLIMEPIRIDE 2 MG TAB PO SCH (09:11)
[2017-03-14] MEDS: DONEPEZIL HCL 5 MG TAB PO SCH (09:11)
[2017-03-14] MEDS: CHOLECALCIFEROL (VIT D3) 5000 UNIT CAP PO SCH (09:11)
[2017-03-14] MEDS: GABAPENTIN 300 MG CAP PO SCH ×2 (09:11→20:37)
[2017-03-14] MEDS: BETAMETHASONE/CLOTRIMAZOLE CREAM 15 GM TOPICAL SCH ×2 (09:13→21:00)
[2017-03-14] MEDS: SODIUM CHLORIDE 0.9% FLUSH 10 ML FLUSH IV FLUSH SCH ×2 (09:13→20:38)
--- NOTE | 2017-03-14 11:28 | HHI.PR ---
Subjective Remarks Patient seen at bedside. Resting comfortably. AFIB at 70-110. Alert and oriented to self only. Cooperative Objective Vital Signs Date Time Temp Pulse Resp B/P Pulse Ox O2 Delivery O2 Flow Rate FiO2 03/14/17 10:00 78 03/14/17 09:00 88 03/14/17 08:00 85 03/14/17 08:00 Nasal Cannula 2.00 03/14/17 08:00 98.0 94 18 147/96 95 03/14/17 06:00 72 03/14/17 05:00 94 03/14/17 04:00 Nasal Cannula 2.00 03/14/17 04:00 97.7 109 18 158/96 96 03/14/17 04:00 105 03/14/17 03:00 96 03/14/17 02:00 104 03/14/17 01:00 94 03/14/17 00:00 107 03/14/17 00:00 Nasal Cannula 2.00 03/14/17 00:00 97.8 115 18 140/94 95 03/13/17 23:00 134 03/13/17 22:00 106 03/13/17 21:00 96 03/13/17 20:48 Nasal Cannula 2.00 03/13/17 20:00 97 03/13/17 20:00 97.8 75 18 122/85 94 03/13/17 20:00 Nasal Cannula 2.00 03/13/17 17:46 97.0 86 18 153/80 96 03/13/17 17:14 20 03/13/17 17:00 80 03/13/17 16:00 78 03/13/17 15:00 Nasal Cannula 2.00 03/13/17 15:00 78 I/O 03/13/17 03/13/17 03/13/17 03/14/17 03/14/17 03/14/17 07:00 15:00 23:00 07:00 15:00 23:00 Intake Total 440 ml 160 ml 240 ml Output Total 175 ml Balance 265 ml 160 ml 240 ml Intake Oral 240 ml 100 ml 240 ml IV Total 200 ml 60 ml Output Urine Total 175 ml # Voids 1 # Bowel Movements 0 Result Diagram: 03/14/1752103/14/17521 Imaging Last 72 hours Impressions Chest X-Ray 03/12/17 1202 Signed Impressions: Service Date/Time: Sunday, March 12, 2017 12:12 - CONCLUSION: 1. Cardiomegaly with increased pulmonary vascularity. 2. Left basilar atelectasis/scarring. Bony Obrien MD Head CT 03/12/17 0000 Signed Impressions: Service Date/Time: Sunday, March 12, 2017 13:09 - CONCLUSION: Negative for an acute process. Kee Robles MD FACR Objective Remarks GENERAL: Alert and cooperative SKIN: Warm and dry. HEAD: Normocephalic. EYES: No scleral icterus. No injection or drainage. NECK: Supple, trachea midline. No JVD or lymphadenopathy. CARDIOVASCULAR: Regular rate and rhythm without murmurs, gallops, or rubs. RESPIRATORY: Breath sounds equal bilaterally. No accessory muscle use. GASTROINTESTINAL: Abdomen soft, non-tender, nondistended. MUSCULOSKELETAL: No cyanosis, or edema. BACK: Nontender without obvious deformity. No CVA tenderness. Medications and IVs Current Medications Medications (Trade) Dose Ordered Sig/Trudy Route Start Time Stop Time Status Last Admin (NS Flush) 2 ml UNSCH PRN IV FLUSH 03/12/17 14:30 (NS Flush) 2 ml BID IV FLUSH 03/12/17 21:00 03/14/17 09:13 (Narcan Inj) 0.4 mg UNSCH PRN IV 03/12/17 14:30 (Vitamin D3) 5,000 units DAILY PO 03/13/17 09:00 03/14/17 09:11 (Aricept) 5 mg DAILY PO 03/13/17 09:00 03/14/17 09:11 (Neurontin) 300 mg BID PO 03/12/17 21:00 03/14/17 09:11 (Amaryl) 2 mg DAILY PO 03/13/17 09:00 03/14/17 09:11 (Synthroid) 50 mcg DAILY@06 PO 03/13/17 06:00 03/14/17 04:02 (Ativan) 1 mg TID PRN PO 03/12/17 14:30 03/13/17 01:59 (Toprol Xl) 50 mg HS PO 03/12/17 21:00 03/13/17 21:41 (Effexor Xr) 150 mg DAILY PO 03/13/17 09:00 03/14/17 09:10 (Tylenol-Codeine #3) 1 tab Q8H PRN PO 03/12/17 15:15 03/13/17 16:14 (Vasotec) 5 mg BID PO 03/12/17 21:00 03/14/17 09:10 (D50w (Vial) Inj) 25 ml UNSCH PRN IV PUSH 03/12/17 18:15 (Glucagon Inj) 1 mg UNSCH PRN OTHER 03/12/17 18:15 Betamethasone/ Clotrimazole 1 applic 1 applic BID TOPICAL 03/13/17 09:00 03/14/17 09:13 (1/2 NS 1000 ml Inj) 1,000 ml @ 100 mls/hr Q10H IV 03/13/17 08:30 03/14/17 03:50 (Cardizem Cd) 120 mg DAILY PO 03/14/17 09:00 03/14/17 09:11 (Eliquis) 2.5 mg BID PO 03/13/17 21:00 03/14/17 09:10 Assessment and Plan Problem List: (1) Atrial fibrillation with RVR Status: Acute Plan: On Cardizem gtt. Rate 70-110. Cardiology consulted and managing. Plan to discontinue gtt and have patient rate controlled. (2) Diabetes 1.5, managed as type 2 Status: Chronic Plan: Continue current medication. BS AC and HS. BS 141-225. Diet changed to diabetic diet. (3) Hypertension Status: Chronic Plan: Continue current medication regimen. B/P well controlled at 123/66 (4) Hypothyroid Status: Chronic Plan: On replacement . TSH, T4 level ordered (5) Hyperlipidemia Status: Chronic Plan: Not on statin. Lipid panel ordered for AM (6) Alzheimer disease Status: Chronic Plan: Patient alert to self only. Cooperative. Head CT with no acute findings. Continue Aricept. (7) Fall Status: Acute Plan: Patient was found on floor prior to coming in CPK ordered for this AM. IVF ordered. (8) Electrolyte abnormality Status: Acute Plan: Magnesium and phosphorus low replacement ordered. Assessment and Plan Assessment and plan discussed with Dr. Thorne Labs ordered. Awaiting cardiology assessment Discussed Condition With Nursing Discharge Planning TO SNF Physician Attestation I have examined this patient and reviewed this noted and I agree with these findings and plan of care. Lesvia Shepard March 14, 2017 11:28
--- NOTE | 2017-03-14 16:28 | PD.CARD.PN ---
Subjective Subjective Remarks No CP or SOB, HR better controlled Objective Medications Current Medications Medications (Trade) Dose Ordered Sig/Trudy Route Start Time Stop Time Status Last Admin (NS Flush) 2 ml UNSCH PRN IV FLUSH 03/12/17 14:30 (NS Flush) 2 ml BID IV FLUSH 03/12/17 21:00 03/14/17 09:13 (Narcan Inj) 0.4 mg UNSCH PRN IV 03/12/17 14:30 (Vitamin D3) 5,000 units DAILY PO 03/13/17 09:00 03/14/17 09:11 (Aricept) 5 mg DAILY PO 03/13/17 09:00 03/14/17 09:11 (Neurontin) 300 mg BID PO 03/12/17 21:00 03/14/17 09:11 (Amaryl) 2 mg DAILY PO 03/13/17 09:00 03/14/17 09:11 (Synthroid) 50 mcg DAILY@06 PO 03/13/17 06:00 03/14/17 04:02 (Ativan) 1 mg TID PRN PO 03/12/17 14:30 03/13/17 01:59 (Toprol Xl) 50 mg HS PO 03/12/17 21:00 03/13/17 21:41 (Effexor Xr) 150 mg DAILY PO 03/13/17 09:00 03/14/17 09:10 (Tylenol-Codeine #3) 1 tab Q8H PRN PO 03/12/17 15:15 03/13/17 16:14 (Vasotec) 5 mg BID PO 03/12/17 21:00 03/14/17 09:10 (D50w (Vial) Inj) 25 ml UNSCH PRN IV PUSH 03/12/17 18:15 (Glucagon Inj) 1 mg UNSCH PRN OTHER 03/12/17 18:15 Betamethasone/ Clotrimazole 1 applic 1 applic BID TOPICAL 03/13/17 09:00 03/14/17 09:13 (1/2 NS 1000 ml Inj) 1,000 ml @ 100 mls/hr Q10H IV 03/13/17 08:30 03/14/17 03:50 (Eliquis) 2.5 mg BID PO 03/13/17 21:00 03/14/17 09:10 (Cardizem Cd) 120 mg DAILY PO 03/15/17 09:00 Vital Signs / I&O Vital Signs Date Time Temp Pulse Resp B/P Pulse Ox O2 Delivery O2 Flow Rate FiO2 03/14/17 15:37 97.0 108 18 136/98 95 03/14/17 13:00 74 03/14/17 12:00 84 03/14/17 11:00 97.9 100 18 147/96 96 03/14/17 11:00 Nasal Cannula 2.00 03/14/17 11:00 82 03/14/17 10:30 92 21 03/14/17 10:00 78 03/14/17 09:00 88 03/14/17 08:00 85 03/14/17 08:00 Nasal Cannula 2.00 03/14/17 08:00 98.0 94 18 147/96 95 03/14/17 06:00 72 03/14/17 05:00 94 03/14/17 04:00 Nasal Cannula 2.00 03/14/17 04:00 97.7 109 18 158/96 96 03/14/17 04:00 105 03/14/17 03:00 96 03/14/17 02:00 104 03/14/17 01:00 94 03/14/17 00:00 107 03/14/17 00:00 Nasal Cannula 2.00 03/14/17 00:00 97.8 115 18 140/94 95 03/13/17 23:00 134 03/13/17 22:00 106 03/13/17 21:00 96 03/13/17 20:48 Nasal Cannula 2.00 03/13/17 20:00 97 03/13/17 20:00 97.8 75 18 122/85 94 03/13/17 20:00 Nasal Cannula 2.00 03/13/17 17:46 97.0 86 18 153/80 96 03/13/17 17:14 20 03/13/17 17:00 80 I/O 03/13/17 03/13/17 03/13/17 03/14/17 03/14/17 03/14/17 07:00 15:00 23:00 07:00 15:00 23:00 Intake Total 440 ml 160 ml 240 ml Output Total 175 ml Balance 265 ml 160 ml 240 ml Intake Oral 240 ml 100 ml 240 ml IV Total 200 ml 60 ml Output Urine Total 175 ml # Voids 1 # Bowel Movements 0 Physical Exam GENERAL: In NAD, mildly confused SKIN: Warm and dry. HEAD: Normocephalic. EYES: No scleral icterus. No injection or drainage. NECK: Supple, trachea midline. No JVD or lymphadenopathy. CARDIOVASCULAR: irregular rate and rhythm without murmurs, gallops, or rubs. RESPIRATORY: Breath sounds equal bilaterally. No accessory muscle use. GASTROINTESTINAL: Abdomen soft, non-tender, nondistended. MUSCULOSKELETAL: No cyanosis, or edema. Laboratory Laboratory Tests Test 03/14/17 05:22 White Blood Count 9.0 TH/MM3 Red Blood Count 4.02 MIL/MM3 Hemoglobin 10.8 GM/DL Hematocrit 34.6 % Mean Corpuscular Volume 86.1 FL Mean Corpuscular Hemoglobin 26.8 PG Mean Corpuscular Hemoglobin 31.2 % Concent Red Cell Distribution Width 15.7 % Platelet Count 260 TH/MM3 Mean Platelet Volume 8.0 FL Neutrophils (%) (Auto) 69.7 % Lymphocytes (%) (Auto) 15.9 % Monocytes (%) (Auto) 11.3 % Eosinophils (%) (Auto) 2.3 % Basophils (%) (Auto) 0.8 % Neutrophils # (Auto) 6.3 TH/MM3 Lymphocytes # (Auto) 1.4 TH/MM3 Monocytes # (Auto) 1.0 TH/MM3 Eosinophils # (Auto) 0.2 TH/MM3 Basophils # (Auto) 0.1 TH/MM3 CBC Comment DIFF FINAL Differential Comment Sodium Level 137 MEQ/L Potassium Level 3.5 MEQ/L Chloride Level 102 MEQ/L Carbon Dioxide Level 23.3 MEQ/L Anion Gap 12 MEQ/L Blood Urea Nitrogen 27 MG/DL Creatinine 1.27 MG/DL Estimat Glomerular Filtration 40 ML/MIN Rate Random Glucose 162 MG/DL Calcium Level 8.2 MG/DL Phosphorus Level 2.0 MG/DL Magnesium Level 1.7 MG/DL Triglycerides Level 79 MG/DL Cholesterol Level 70 MG/DL LDL Cholesterol 17 MG/DL HDL Cholesterol 37.4 MG/DL Cholesterol/HDL Ratio 1.87 RATIO Imaging Last Impressions Chest X-Ray 03/12/17 1202 Signed Impressions: Service Date/Time: Sunday, March 12, 2017 12:12 - CONCLUSION: 1. Cardiomegaly with increased pulmonary vascularity. 2. Left basilar atelectasis/scarring. Bony Obrien MD Head CT 03/12/17 0000 Signed Impressions: Service Date/Time: Sunday, March 12, 2017 13:09 - CONCLUSION: Negative for an acute process. Kee Robles MD FACR Assessment and Plan Problem List: (1) Atrial fibrillation with RVR (2) Diabetes 1.5, managed as type 2 (3) Hypertension (4) Hyperlipidemia (5) Alzheimer disease (6) Hypothyroid Assessment and Plan Rate better controlled. Continue rate control with PO diltiazem and metoprolol. BP improving. Continue anticoagulation with low dose Eliquis. Continue monitoring. No plans for cardioversion at this time, plan to continue rate control and anticoagulation. Gracie Eaton MD March 14, 2017 16:28
[2017-03-14] MEDS: ACETAMINOPHEN/CODEINE 300 MG/30 MG TAB PO PRN (20:37)
[2017-03-14] MEDS: METOPROLOL SUCCINATE 50 MG EXTENDED RELEASE TAB PO SCH (20:37)
[2017-03-15] VITALS (26 sets, daily range): BP systolic 141–156; BP diastolic 96–115; PULSE 90–138; RESP 18; TEMP 97.5–98.3; O2SAT 94–98
[2017-03-15] MEDS: ACETAMINOPHEN/CODEINE 300 MG/30 MG TAB PO PRN (04:04)
[2017-03-15 05:43] LABS: AUTOMATED NEUTROPHIL # 5.6 TH/MM3 (1.8-7.7); BASOPHIL # 0.1 TH/MM3 (0-0.2); BASOPHIL % 0.8 % (0.0-2.0); EOSINOPHIL # 0.2 TH/MM3 (0-0.4); EOSINOPHIL % 1.9 % (0.0-4.0); HEMATOCRIT 35.2 % (35.0-46.0); HEMO FLAGS DIFF FINAL; LYMPHOCYTE # 1.3 TH/MM3 (1.0-4.8); MEAN CELL VOLUME 85.1 FL (80.0-100.0); MEAN CORPUSCULAR HEMOGLOBIN 27.2 PG (27.0-34.0); MONO % 10.9 % (0.0-8.0); NEUT % 70.4 % (16.0-70.0); PLATELET COUNT 285 TH/MM3 (150-450); RED BLOOD COUNT 4.13 MIL/MM3 (4.00-5.30); RED CELL DISTRIBUTION WIDTH 15.7 % (11.6-17.2)
[2017-03-15 06:00] LABS: BICARBONATE 26.2 MEQ/L (21.0-32.0); POTASSIUM 3.3 MEQ/L (3.5-5.1)
[2017-03-15] MEDS: LOW DOSE INSULIN NOVOLIN REGULAR SUPPLEMENTAL SCALE SQ SCH ×4 (06:05→20:38)
[2017-03-15] MEDS: LEVOTHYROXINE SODIUM 50 MCG TAB PO SCH (06:10)
[2017-03-15] MEDS ORDERED: POTASSIUM CHLORIDE 20 MEQ CONTROLLED RELEASE TAB PO ONE (07:30)
[2017-03-15] MEDS ORDERED: DILTIAZEM-CD 180 MG CAP ER PO SCH (09:00)
[2017-03-15] MEDS ORDERED: DILTIAZEM-CD 120 MG CAP ER PO SCH (09:00)
[2017-03-15] MEDS: BETAMETHASONE/CLOTRIMAZOLE CREAM 15 GM TOPICAL SCH ×2 (09:00→20:39)
[2017-03-15] MEDS: VENLAFAXINE HCL XR 75 MG CAP PO SCH (09:06)
[2017-03-15] MEDS: GLIMEPIRIDE 2 MG TAB PO SCH (09:06)
[2017-03-15] MEDS: ENALAPRIL MALEATE 5 MG TAB PO SCH ×2 (09:06→20:37)
[2017-03-15] MEDS: GABAPENTIN 300 MG CAP PO SCH ×2 (09:07→20:38)
[2017-03-15] MEDS: DONEPEZIL HCL 5 MG TAB PO SCH (09:07)
[2017-03-15] MEDS: SODIUM CHLORIDE 0.9% FLUSH 10 ML FLUSH IV FLUSH SCH ×2 (09:07→20:38)
[2017-03-15] MEDS: CHOLECALCIFEROL (VIT D3) 5000 UNIT CAP PO SCH (09:07)
[2017-03-15] MEDS: APIXABAN 2.5 MG TABLET PO SCH ×2 (09:07→20:37)
--- NOTE | 2017-03-15 11:01 | HHI.PR ---
Subjective Remarks Patient seen at bedside. Resting comfortably. AFIB at 70-110. Alert and oriented to self only. Cooperative Objective Vital Signs Date Time Temp Pulse Resp B/P Pulse Ox O2 Delivery O2 Flow Rate FiO2 03/15/17 09:55 95 21 03/15/17 06:00 98 03/15/17 05:00 100 03/15/17 04:00 98 03/15/17 03:15 95 Room Air 03/15/17 03:15 97.6 97 18 141/96 95 03/15/17 03:00 98 03/15/17 02:00 92 03/15/17 01:00 92 03/15/17 00:00 90 03/14/17 23:40 97.3 97 18 143/94 95 03/14/17 23:40 95 Room Air 03/14/17 23:00 100 03/14/17 22:00 98 03/14/17 21:40 16 03/14/17 21:00 104 03/14/17 20:00 120 03/14/17 19:10 95 Room Air 03/14/17 19:10 97.3 99 18 145/97 95 03/14/17 19:00 107 03/14/17 17:50 95 21 03/14/17 16:00 90 03/14/17 15:37 97.0 108 18 136/98 95 03/14/17 15:00 Nasal Cannula 2.00 03/14/17 15:00 90 03/14/17 14:00 90 03/14/17 13:00 74 03/14/17 12:00 84 03/14/17 11:00 97.9 100 18 147/96 96 03/14/17 11:00 Nasal Cannula 2.00 03/14/17 11:00 82 I/O 03/14/17 03/14/17 03/14/17 03/15/17 03/15/17 03/15/17 07:00 15:00 23:00 07:00 15:00 23:00 Intake Total 240 ml 1080 ml Balance 240 ml 1080 ml Intake Oral 240 ml 480 ml IV Total 600 ml # Voids 1 1 6 # Bowel Movements 1 Result Diagram: 03/15/17 0445 03/15/17 0445 Objective Remarks GENERAL: Alert and cooperative SKIN: Warm and dry. HEAD: Normocephalic. EYES: No scleral icterus. No injection or drainage. NECK: Supple, trachea midline. No JVD or lymphadenopathy. CARDIOVASCULAR: Regular rate and rhythm without murmurs, gallops, or rubs. RESPIRATORY: Breath sounds equal bilaterally. No accessory muscle use. GASTROINTESTINAL: Abdomen soft, non-tender, nondistended. MUSCULOSKELETAL: No cyanosis, or edema. BACK: Nontender without obvious deformity. No CVA tenderness. Medications and IVs Current Medications Medications (Trade) Dose Ordered Sig/Trudy Route Start Time Stop Time Status Last Admin (NS Flush) 2 ml UNSCH PRN IV FLUSH 03/12/17 14:30 (NS Flush) 2 ml BID IV FLUSH 03/12/17 21:00 03/15/17 09:07 (Narcan Inj) 0.4 mg UNSCH PRN IV 03/12/17 14:30 (Vitamin D3) 5,000 units DAILY PO 03/13/17 09:00 03/15/17 09:07 (Aricept) 5 mg DAILY PO 03/13/17 09:00 03/15/17 09:07 (Neurontin) 300 mg BID PO 03/12/17 21:00 03/15/17 09:07 (Amaryl) 2 mg DAILY PO 03/13/17 09:00 03/15/17 09:06 (Synthroid) 50 mcg DAILY@06 PO 03/13/17 06:00 03/15/17 06:10 (Ativan) 1 mg TID PRN PO 03/12/17 14:30 03/13/17 01:59 (Toprol Xl) 50 mg HS PO 03/12/17 21:00 03/14/17 20:37 (Effexor Xr) 150 mg DAILY PO 03/13/17 09:00 03/15/17 09:06 (Tylenol-Codeine #3) 1 tab Q8H PRN PO 03/12/17 15:15 03/15/17 04:04 (Vasotec) 5 mg BID PO 03/12/17 21:00 03/15/17 09:06 (D50w (Vial) Inj) 25 ml UNSCH PRN IV PUSH 03/12/17 18:15 (Glucagon Inj) 1 mg UNSCH PRN OTHER 03/12/17 18:15 (Lotrisone Cream) 1 applic BID TOPICAL 03/13/17 09:00 03/15/17 09:00 (Eliquis) 2.5 mg BID PO 03/13/17 21:00 03/15/17 09:07 (Cardizem Cd) 180 mg DAILY PO 03/15/17 09:00 03/15/17 09:07 Assessment and Plan Problem List: (1) Atrial fibrillation with RVR Status: Acute Plan: Cardiology consulted and managing. GTT discontinued. Cardizem PO increased for improved rate control. (2) Diabetes 1.5, managed as type 2 Status: Chronic Plan: Continue current medication. BS AC and HS. BS 141-225. Diet changed to diabetic diet. (3) Hypertension Status: Chronic Plan: B/P 141/96 Cardizem increased. (4) Hypothyroid Status: Chronic Plan: On replacement . TSH, T4 level ordered and WNL (5) Hyperlipidemia Status: Chronic Plan: Not on statin. Lipid panel ordered and WNL (6) Alzheimer disease Status: Chronic Plan: Patient alert to self only. Cooperative. Head CT with no acute findings. Continue Aricept. (7) Fall Status: Acute Plan: Patient was found on floor prior to coming in CPK ordered and WNL. IVF discontinued today renal indices improving. (8) Electrolyte abnormality Status: Acute Plan: Potassium low replacement added. Assessment and Plan Assessment and plan discussed with Dr. Thorne Labs ordered. Awaiting cardiology assessment Discussed Condition With Nursing Discharge Planning SNF anticipate discharge tomorrow Physician Attestation I and the STABILIZING MACHINE OPERATOR have both examined the patient and reviewed this note and I agree with these findings and plan of care. Lesvia Gross STABILIZING MACHINE OPERATOR March 15, 2017 11:01
--- NOTE | 2017-03-15 18:04 | PD.CARD.PN ---
Subjective Subjective Remarks No CP or SOB, HR and BP still elevated Objective Medications Current Medications Medications (Trade) Dose Ordered Sig/Trudy Route Start Time Stop Time Status Last Admin (NS Flush) 2 ml UNSCH PRN IV FLUSH 03/12/17 14:30 (NS Flush) 2 ml BID IV FLUSH 03/12/17 21:00 03/15/17 09:07 (Narcan Inj) 0.4 mg UNSCH PRN IV 03/12/17 14:30 (Vitamin D3) 5,000 units DAILY PO 03/13/17 09:00 03/15/17 09:07 (Aricept) 5 mg DAILY PO 03/13/17 09:00 03/15/17 09:07 (Neurontin) 300 mg BID PO 03/12/17 21:00 03/15/17 09:07 (Amaryl) 2 mg DAILY PO 03/13/17 09:00 03/15/17 09:06 (Synthroid) 50 mcg DAILY@06 PO 03/13/17 06:00 03/15/17 06:10 (Ativan) 1 mg TID PRN PO 03/12/17 14:30 03/13/17 01:59 (Toprol Xl) 50 mg HS PO 03/12/17 21:00 03/14/17 20:37 (Effexor Xr) 150 mg DAILY PO 03/13/17 09:00 03/15/17 09:06 (Tylenol-Codeine #3) 1 tab Q8H PRN PO 03/12/17 15:15 03/15/17 04:04 (Vasotec) 5 mg BID PO 03/12/17 21:00 03/15/17 09:06 (D50w (Vial) Inj) 25 ml UNSCH PRN IV PUSH 03/12/17 18:15 (Glucagon Inj) 1 mg UNSCH PRN OTHER 03/12/17 18:15 (Lotrisone Cream) 1 applic BID TOPICAL 03/13/17 09:00 03/15/17 09:00 (Eliquis) 2.5 mg BID PO 03/13/17 21:00 03/15/17 09:07 (Cardizem Cd) 180 mg DAILY PO 03/15/17 09:00 03/15/17 09:07 Vital Signs / I&O Vital Signs Date Time Temp Pulse Resp B/P Pulse Ox O2 Delivery O2 Flow Rate FiO2 03/15/17 15:30 98.0 101 18 156/105 96 03/15/17 13:00 112 03/15/17 12:00 102 03/15/17 11:41 98.3 107 18 154/111 96 03/15/17 11:00 132 03/15/17 10:00 104 03/15/17 09:55 95 21 03/15/17 09:00 126 03/15/17 08:00 97.8 98 18 152/115 98 03/15/17 08:00 108 03/15/17 07:00 102 03/15/17 06:00 98 03/15/17 05:00 100 03/15/17 04:00 98 03/15/17 03:15 95 Room Air 03/15/17 03:15 97.6 97 18 141/96 95 03/15/17 03:00 98 03/15/17 02:00 92 03/15/17 01:00 92 03/15/17 00:00 90 03/14/17 23:40 97.3 97 18 143/94 95 03/14/17 23:40 95 Room Air 03/14/17 23:00 100 03/14/17 22:00 98 03/14/17 21:40 16 03/14/17 21:00 104 03/14/17 20:00 120 03/14/17 19:10 95 Room Air 03/14/17 19:10 97.3 99 18 145/97 95 03/14/17 19:00 107 I/O 03/14/17 03/14/17 03/14/17 03/15/17 03/15/17 03/15/17 07:00 15:00 23:00 07:00 15:00 23:00 Intake Total 240 ml 1080 ml Balance 240 ml 1080 ml Intake Oral 240 ml 480 ml IV Total 600 ml # Voids 1 1 6 # Bowel Movements 1 Physical Exam GENERAL: In NAD, mildly confused SKIN: Warm and dry. HEAD: Normocephalic. EYES: No scleral icterus. No injection or drainage. NECK: Supple, trachea midline. No JVD or lymphadenopathy. CARDIOVASCULAR: irregular rate and rhythm without murmurs, gallops, or rubs. RESPIRATORY: Breath sounds equal bilaterally. No accessory muscle use. GASTROINTESTINAL: Abdomen soft, non-tender, nondistended. MUSCULOSKELETAL: No cyanosis, or edema. Laboratory Laboratory Tests Test 03/15/17 04:45 White Blood Count 8.0 TH/MM3 Red Blood Count 4.13 MIL/MM3 Hemoglobin 11.3 GM/DL Hematocrit 35.2 % Mean Corpuscular Volume 85.1 FL Mean Corpuscular Hemoglobin 27.2 PG Mean Corpuscular Hemoglobin 32.0 % Concent Red Cell Distribution Width 15.7 % Platelet Count 285 TH/MM3 Mean Platelet Volume 8.0 FL Neutrophils (%) (Auto) 70.4 % Lymphocytes (%) (Auto) 16.0 % Monocytes (%) (Auto) 10.9 % Eosinophils (%) (Auto) 1.9 % Basophils (%) (Auto) 0.8 % Neutrophils # (Auto) 5.6 TH/MM3 Lymphocytes # (Auto) 1.3 TH/MM3 Monocytes # (Auto) 0.9 TH/MM3 Eosinophils # (Auto) 0.2 TH/MM3 Basophils # (Auto) 0.1 TH/MM3 CBC Comment DIFF FINAL Differential Comment Sodium Level 138 MEQ/L Potassium Level 3.3 MEQ/L Chloride Level 104 MEQ/L Carbon Dioxide Level 26.2 MEQ/L Anion Gap 8 MEQ/L Blood Urea Nitrogen 18 MG/DL Creatinine 1.02 MG/DL Estimat Glomerular Filtration 52 ML/MIN Rate Random Glucose 100 MG/DL Calcium Level 8.3 MG/DL Magnesium Level 2.0 MG/DL Imaging Last Impressions Chest X-Ray 03/12/17 1202 Signed Impressions: Service Date/Time: Sunday, March 12, 2017 12:12 - CONCLUSION: 1. Cardiomegaly with increased pulmonary vascularity. 2. Left basilar atelectasis/scarring. Bony Obrien MD Head CT 03/12/17 0000 Signed Impressions: Service Date/Time: Sunday, March 12, 2017 13:09 - CONCLUSION: Negative for an acute process. Kee Robles MD FACR Assessment and Plan Problem List: (1) Atrial fibrillation with RVR (2) Diabetes 1.5, managed as type 2 (3) Hypertension (4) Hyperlipidemia (5) Alzheimer disease (6) Hypothyroid Assessment and Plan Rate better controlled but still elevated. Continue rate control with PO diltiazem (titrate dose again) and metoprolol. BP improving. Continue anticoagulation with low dose Eliquis. Continue monitoring. No plans for cardioversion at this time, plan to continue rate control and anticoagulation. D /w pt's family. Gracie Eaton MD March 15, 2017 18:04
[2017-03-15] MEDS ORDERED: DILTIAZEM HCL 25 MG/5 ML VIAL IV PUSH PRN (19:00)
[2017-03-15] MEDS ORDERED: DILTIAZEM 125 MG/NS 100 ML IV SCH ×2 (19:00)
[2017-03-15] MEDS: METOPROLOL SUCCINATE 50 MG EXTENDED RELEASE TAB PO SCH (20:37)
[2017-03-16] VITALS (21 sets, daily range): BP systolic 136–157; BP diastolic 89–99; PULSE 71–134; RESP 18–20; TEMP 97.4–98.4; O2SAT 94–96
[2017-03-16] MEDS: ACETAMINOPHEN/CODEINE 300 MG/30 MG TAB PO PRN ×3 (01:15→19:59)
[2017-03-16] MEDS: LOW DOSE INSULIN NOVOLIN REGULAR SUPPLEMENTAL SCALE SQ SCH ×4 (05:08→20:23)
[2017-03-16] MEDS: LEVOTHYROXINE SODIUM 50 MCG TAB PO SCH (05:08)
[2017-03-16 06:57] LABS: AUTOMATED NEUTROPHIL # 5.5 TH/MM3 (1.8-7.7); BASOPHIL # 0.1 TH/MM3 (0-0.2); BASOPHIL % 0.9 % (0.0-2.0); EOSINOPHIL # 0.2 TH/MM3 (0-0.4); EOSINOPHIL % 2.9 % (0.0-4.0); HEMATOCRIT 33.4 % (35.0-46.0); HEMO FLAGS DIFF FINAL; LYMPH % 18.9 % (9.0-44.0); LYMPHOCYTE # 1.6 TH/MM3 (1.0-4.8); MEAN CELL VOLUME 84.8 FL (80.0-100.0); MEAN CORPUSCULAR HEMOGLOBIN 27.8 PG (27.0-34.0); MEAN CORPUSCULAR HGB CONC 32.8 % (32.0-36.0); MONO % 12.4 % (0.0-8.0); NEUT % 64.9 % (16.0-70.0); PLATELET COUNT 292 TH/MM3 (150-450); RED BLOOD COUNT 3.95 MIL/MM3 (4.00-5.30); RED CELL DISTRIBUTION WIDTH 16.1 % (11.6-17.2); WHITE BLOOD COUNT 8.4 TH/MM3 (4.0-11.0)
[2017-03-16 07:21] LABS: BICARBONATE 24.8 MEQ/L (21.0-32.0); POTASSIUM 3.7 MEQ/L (3.5-5.1)
[2017-03-16] MEDS: DILTIAZEM-CD 240 MG CAP ER PO SCH (09:24)
[2017-03-16] MEDS: DONEPEZIL HCL 5 MG TAB PO SCH (09:24)
[2017-03-16] MEDS: GLIMEPIRIDE 2 MG TAB PO SCH (09:24)
[2017-03-16] MEDS: APIXABAN 2.5 MG TABLET PO SCH ×2 (09:24→20:00)
[2017-03-16] MEDS: GABAPENTIN 300 MG CAP PO SCH ×2 (09:24→19:59)
[2017-03-16] MEDS: ENALAPRIL MALEATE 5 MG TAB PO SCH ×2 (09:24→19:59)
[2017-03-16] MEDS: VENLAFAXINE HCL XR 75 MG CAP PO SCH (09:24)
--- NOTE | 2017-03-16 10:07 | PD.CARD.PN ---
Subjective Subjective Remarks No CP or SOB, feels better, wishes to go home, HR increased last night, back on IV dilt Objective Medications Current Medications Medications (Trade) Dose Ordered Sig/Trudy Route Start Time Stop Time Status Last Admin (NS Flush) 2 ml UNSCH PRN IV FLUSH 03/12/17 14:30 (NS Flush) 2 ml BID IV FLUSH 03/12/17 21:00 03/15/17 20:38 (Narcan Inj) 0.4 mg UNSCH PRN IV 03/12/17 14:30 (Vitamin D3) 5,000 units DAILY PO 03/13/17 09:00 03/15/17 09:07 (Aricept) 5 mg DAILY PO 03/13/17 09:00 03/16/17 09:24 (Neurontin) 300 mg BID PO 03/12/17 21:00 03/16/17 09:24 (Amaryl) 2 mg DAILY PO 03/13/17 09:00 03/16/17 09:24 (Synthroid) 50 mcg DAILY@06 PO 03/13/17 06:00 03/16/17 05:08 (Ativan) 1 mg TID PRN PO 03/12/17 14:30 03/13/17 01:59 (Toprol Xl) 50 mg HS PO 03/12/17 21:00 03/15/17 20:37 (Effexor Xr) 150 mg DAILY PO 03/13/17 09:00 03/16/17 09:24 (Tylenol-Codeine #3) 1 tab Q8H PRN PO 03/12/17 15:15 03/16/17 01:15 (Vasotec) 5 mg BID PO 03/12/17 21:00 03/16/17 09:24 (D50w (Vial) Inj) 25 ml UNSCH PRN IV PUSH 03/12/17 18:15 (Glucagon Inj) 1 mg UNSCH PRN OTHER 03/12/17 18:15 (Lotrisone Cream) 1 applic BID TOPICAL 03/13/17 09:00 03/15/17 20:39 (Eliquis) 2.5 mg BID PO 03/13/17 21:00 03/16/17 09:24 (Cardizem Cd) 240 mg DAILY PO 03/16/17 09:00 03/16/17 09:24 Diltiazem HCl 5 mg 5 mg BOLUS PRN IV PUSH 03/15/17 19:00 03/16/17 18:59 03/15/17 20:36 (Cardizem Inj/NS Inj) 125 ml @ 0 mls/hr TITRATE IV 03/15/17 19:00 03/15/17 20:37 Vital Signs / I&O Vital Signs Date Time Temp Pulse Resp B/P Pulse Ox O2 Delivery O2 Flow Rate FiO2 03/16/17 09:00 Room Air 03/16/17 08:54 102 03/16/17 08:00 98.0 102 18 147/89 96 03/16/17 06:00 85 03/16/17 05:00 92 03/16/17 04:00 95 03/16/17 04:00 97.4 96 18 136/92 94 03/16/17 04:00 Room Air 03/16/17 03:00 78 03/16/17 02:00 82 03/16/17 01:00 80 03/16/17 00:00 98.1 104 18 152/95 96 03/16/17 00:00 Room Air 03/16/17 00:00 95 03/15/17 23:00 103 03/15/17 22:00 96 03/15/17 21:00 98 03/15/17 20:00 Room Air 03/15/17 20:00 97.5 138 18 149/96 94 03/15/17 20:00 138 03/15/17 18:00 108 03/15/17 17:00 108 03/15/17 16:00 102 03/15/17 15:30 98.0 101 18 156/105 96 03/15/17 14:00 102 03/15/17 13:00 112 03/15/17 12:00 102 03/15/17 11:41 98.3 107 18 154/111 96 03/15/17 11:00 132 I/O 03/15/17 03/15/17 03/15/17 03/16/17 03/16/17 03/16/17 07:00 15:00 23:00 07:00 15:00 23:00 Intake Total 1080 ml 240 ml Balance 1080 ml 240 ml Intake Oral 480 ml 240 ml IV Total 600 ml # Voids 6 2 # Bowel Movements 1 Physical Exam GENERAL: In NAD, mildly confused SKIN: Warm and dry. HEAD: Normocephalic. EYES: No scleral icterus. No injection or drainage. NECK: Supple, trachea midline. No JVD or lymphadenopathy. CARDIOVASCULAR: irregular rate and rhythm without murmurs, gallops, or rubs. RESPIRATORY: Breath sounds equal bilaterally. No accessory muscle use. GASTROINTESTINAL: Abdomen soft, non-tender, nondistended. MUSCULOSKELETAL: No cyanosis, or edema. Laboratory Laboratory Tests Test 03/16/17 05:55 White Blood Count 8.4 TH/MM3 Red Blood Count 3.95 MIL/MM3 Hemoglobin 11.0 GM/DL Hematocrit 33.4 % Mean Corpuscular Volume 84.8 FL Mean Corpuscular Hemoglobin 27.8 PG Mean Corpuscular Hemoglobin 32.8 % Concent Red Cell Distribution Width 16.1 % Platelet Count 292 TH/MM3 Mean Platelet Volume 7.9 FL Neutrophils (%) (Auto) 64.9 % Lymphocytes (%) (Auto) 18.9 % Monocytes (%) (Auto) 12.4 % Eosinophils (%) (Auto) 2.9 % Basophils (%) (Auto) 0.9 % Neutrophils # (Auto) 5.5 TH/MM3 Lymphocytes # (Auto) 1.6 TH/MM3 Monocytes # (Auto) 1.0 TH/MM3 Eosinophils # (Auto) 0.2 TH/MM3 Basophils # (Auto) 0.1 TH/MM3 CBC Comment DIFF FINAL Differential Comment Sodium Level 137 MEQ/L Potassium Level 3.7 MEQ/L Chloride Level 103 MEQ/L Carbon Dioxide Level 24.8 MEQ/L Anion Gap 9 MEQ/L Blood Urea Nitrogen 19 MG/DL Creatinine 1.19 MG/DL Estimat Glomerular Filtration 43 ML/MIN Rate Random Glucose 158 MG/DL Calcium Level 8.4 MG/DL Imaging Last Impressions Chest X-Ray 03/12/17 1202 Signed Impressions: Service Date/Time: Sunday, March 12, 2017 12:12 - CONCLUSION: 1. Cardiomegaly with increased pulmonary vascularity. 2. Left basilar atelectasis/scarring. Bony Obrien MD Head CT 03/12/17 0000 Signed Impressions: Service Date/Time: Sunday, March 12, 2017 13:09 - CONCLUSION: Negative for an acute process. Kee Robles MD FACR Assessment and Plan Problem List: (1) Atrial fibrillation with RVR (2) Diabetes 1.5, managed as type 2 (3) Hypertension (4) Hyperlipidemia (5) Alzheimer disease (6) Hypothyroid Assessment and Plan Rate better controlled but still intermittently elevated. Continue rate control with PO diltiazem (dose titrated again) and metoprolol, wean IV dilt. BP improving. Continue anticoagulation with low dose Eliquis. Continue monitoring. No plans for cardioversion at this time, plan to continue rate control and anticoagulation. Anticipate discharge (prob to rehab) soon. Gracie Eaton MD March 16, 2017 10:07
--- NOTE | 2017-03-16 11:05 | HHI.PR ---
Subjective Remarks Patient seen at bedside. Resting comfortably. AFIB at 70-110. HR increased last night and IV Diltazem restarted. Objective Vital Signs Date Time Temp Pulse Resp B/P Pulse Ox O2 Delivery O2 Flow Rate FiO2 03/16/17 09:00 Room Air 03/16/17 08:54 102 03/16/17 08:00 98.0 102 18 147/89 96 03/16/17 06:00 85 03/16/17 05:00 92 03/16/17 04:00 95 03/16/17 04:00 97.4 96 18 136/92 94 03/16/17 04:00 Room Air 03/16/17 03:00 78 03/16/17 02:00 82 03/16/17 01:00 80 03/16/17 00:00 98.1 104 18 152/95 96 03/16/17 00:00 Room Air 03/16/17 00:00 95 03/15/17 23:00 103 03/15/17 22:00 96 03/15/17 21:00 98 03/15/17 20:00 Room Air 03/15/17 20:00 97.5 138 18 149/96 94 03/15/17 20:00 138 03/15/17 18:00 108 03/15/17 17:00 108 03/15/17 16:00 102 03/15/17 15:30 98.0 101 18 156/105 96 03/15/17 14:00 102 03/15/17 13:00 112 03/15/17 12:00 102 03/15/17 11:41 98.3 107 18 154/111 96 03/15/17 11:00 132 I/O 03/15/17 03/15/17 03/15/17 03/16/17 03/16/17 03/16/17 06:59 14:59 22:59 06:59 14:59 22:59 Intake Total 1080 ml 240 ml Balance 1080 ml 240 ml Intake Oral 480 ml 240 ml IV Total 600 ml # Voids 6 2 # Bowel Movements 1 Result Diagram: 03/16/17 0555 03/16/17 0555 Other Results Laboratory Tests Test 03/12/17 03/12/17 03/12/17 03/13/17 12:00 14:10 15:32 09:30 Prothrombin Time 14.0 SEC Prothromb Time International 1.3 RATIO Ratio Activated Partial 26.1 SEC Thromboplast Time Blood Type O POSITIVE Antibody Screen NEGATIVE Blood Bank Comment Urine Color YELLOW Urine Turbidity CLEAR Urine pH 6.0 Urine Specific [place] 1.033 Urine Protein 100 mg/dL Urine Glucose (UA) 1000 mg/dL Urine Ketones NEG mg/dL Urine Occult Blood NEG Urine Nitrite NEG Urine Bilirubin NEG Urine Urobilinogen LESS THAN 2.0 MG/DL Urine Leukocyte Esterase NEG Urine RBC LESS THAN 1 /hpf Urine WBC 1 /hpf Urine Squamous Epithelial <1 /hpf Cells Urine Bacteria NONE /hpf Microscopic Urinalysis Comment CATH-CULT NOT IND Lactic Acid Level 1.8 mmol/L Total Creatine Kinase 47 U/L Troponin I LESS THAN 0.02 NG/ML Free Thyroxine 1.34 NG/DL Thyroid Stimulating Hormone 1.870 uIU/ML 3rd Gen Test 03/14/17 03/15/17 03/16/17 05:22 04:45 05:55 Phosphorus Level 2.0 MG/DL Triglycerides Level 79 MG/DL Cholesterol Level 70 MG/DL LDL Cholesterol 17 MG/DL HDL Cholesterol 37.4 MG/DL Cholesterol/HDL Ratio 1.87 RATIO Magnesium Level 2.0 MG/DL White Blood Count 8.4 TH/MM3 Red Blood Count 3.95 MIL/MM3 Hemoglobin 11.0 GM/DL Hematocrit 33.4 % Mean Corpuscular Volume 84.8 FL Mean Corpuscular Hemoglobin 27.8 PG Mean Corpuscular Hemoglobin 32.8 % Concent Red Cell Distribution Width 16.1 % Platelet Count 292 TH/MM3 Mean Platelet Volume 7.9 FL Neutrophils (%) (Auto) 64.9 % Lymphocytes (%) (Auto) 18.9 % Monocytes (%) (Auto) 12.4 % Eosinophils (%) (Auto) 2.9 % Basophils (%) (Auto) 0.9 % Neutrophils # (Auto) 5.5 TH/MM3 Lymphocytes # (Auto) 1.6 TH/MM3 Monocytes # (Auto) 1.0 TH/MM3 Eosinophils # (Auto) 0.2 TH/MM3 Basophils # (Auto) 0.1 TH/MM3 CBC Comment DIFF FINAL Differential Comment Sodium Level 137 MEQ/L Potassium Level 3.7 MEQ/L Chloride Level 103 MEQ/L Carbon Dioxide Level 24.8 MEQ/L Anion Gap 9 MEQ/L Blood Urea Nitrogen 19 MG/DL Creatinine 1.19 MG/DL Estimat Glomerular Filtration 43 ML/MIN Rate Random Glucose 158 MG/DL Calcium Level 8.4 MG/DL Objective Remarks GENERAL: Alert and cooperative SKIN: Warm and dry. HEAD: Normocephalic. EYES: No scleral icterus. No injection or drainage. NECK: Supple, trachea midline. No JVD or lymphadenopathy. CARDIOVASCULAR: Regular rate and rhythm without murmurs, gallops, or rubs. RESPIRATORY: Breath sounds equal bilaterally. No accessory muscle use. GASTROINTESTINAL: Abdomen soft, non-tender, nondistended. MUSCULOSKELETAL: No cyanosis, or edema. BACK: Nontender without obvious deformity. No CVA tenderness. Medications and IVs Current Medications Medications (Trade) Dose Ordered Sig/Trudy Route Start Time Stop Time Status Last Admin (NS Flush) 2 ml UNSCH PRN IV FLUSH 03/12/17 14:30 (NS Flush) 2 ml BID IV FLUSH 03/12/17 21:00 03/15/17 20:38 (Narcan Inj) 0.4 mg UNSCH PRN IV 03/12/17 14:30 (Vitamin D3) 5,000 units DAILY PO 03/13/17 09:00 03/15/17 09:07 (Aricept) 5 mg DAILY PO 03/13/17 09:00 03/16/17 09:24 (Neurontin) 300 mg BID PO 03/12/17 21:00 03/16/17 09:24 (Amaryl) 2 mg DAILY PO 03/13/17 09:00 03/16/17 09:24 (Synthroid) 50 mcg DAILY@06 PO 03/13/17 06:00 03/16/17 05:08 (Ativan) 1 mg TID PRN PO 03/12/17 14:30 03/13/17 01:59 (Toprol Xl) 50 mg HS PO 03/12/17 21:00 03/15/17 20:37 (Effexor Xr) 150 mg DAILY PO 03/13/17 09:00 03/16/17 09:24 (Tylenol-Codeine #3) 1 tab Q8H PRN PO 03/12/17 15:15 03/16/17 01:15 (Vasotec) 5 mg BID PO 03/12/17 21:00 03/16/17 09:24 (D50w (Vial) Inj) 25 ml UNSCH PRN IV PUSH 03/12/17 18:15 (Glucagon Inj) 1 mg UNSCH PRN OTHER 03/12/17 18:15 (Lotrisone Cream) 1 applic BID TOPICAL 03/13/17 09:00 03/15/17 20:39 (Eliquis) 2.5 mg BID PO 03/13/17 21:00 03/16/17 09:24 (Cardizem Cd) 240 mg DAILY PO 03/16/17 09:00 03/16/17 09:24 Diltiazem HCl 5 mg 5 mg BOLUS PRN IV PUSH 03/15/17 19:00 03/16/17 18:59 03/15/17 20:36 (Cardizem Inj/NS Inj) 125 ml @ 0 mls/hr TITRATE IV 03/15/17 19:00 03/15/17 20:37 Assessment and Plan Problem List: (1) Atrial fibrillation with RVR Status: Acute Plan: Cardiology consulted and managing. Diltiazem gtt restarted. Plan to wean and titrate PO medication. (2) Diabetes 1.5, managed as type 2 Status: Chronic Plan: Continue current medication. BS AC and HS. BS 139-269. Diabetic diet. metformin restarted. (3) Hypertension Status: Chronic Plan: B/P 147/89 Cardizem increased, on metoprolol and Vasotec. Will continue current regimen and monitor (4) Hypothyroid Status: Chronic Plan: On replacement . TSH, T4 level ordered and WNL (5) Hyperlipidemia Status: Chronic Plan: Not on statin. Lipid panel ordered and WNL (6) Alzheimer disease Status: Chronic Plan: Patient alert to self only. Cooperative. Head CT with no acute findings. Continue Aricept. (7) Fall Status: Acute Plan: Patient was found on floor prior to coming in CPK ordered and WNL. (8) Electrolyte abnormality Status: Acute Plan: Potassium low replacement added. Potassium level today is 3.7 Assessment and Plan Assessment and plan discussed with Dr. Thorne Labs ordered. Awaiting cardiology assessment Discussed Condition With Nursing Discharge Planning [facility] Physician Attestation I and the SOIL TECHNOLOGIST have both examined this patient and reviewed this note and I agree with these findings and plan of care. Lesvia Leal SOIL TECHNOLOGIST March 16, 2017 11:05
[2017-03-16] MEDS ORDERED: metFORMIN HCL 500 MG TAB PO SCH (18:00)
[2017-03-16] MEDS: CHOLECALCIFEROL (VIT D3) 5000 UNIT CAP PO SCH (18:38)
[2017-03-16] MEDS: BETAMETHASONE/CLOTRIMAZOLE CREAM 15 GM TOPICAL SCH ×2 (18:42→20:02)
[2017-03-16] MEDS: SODIUM CHLORIDE 0.9% FLUSH 10 ML FLUSH IV FLUSH SCH (19:58)
[2017-03-16] MEDS: METOPROLOL SUCCINATE 50 MG EXTENDED RELEASE TAB PO SCH (20:02)
[2017-03-16] MEDS: LORazepam 0.5 MG TAB PO PRN (21:52)
[2017-03-17] VITALS (24 sets, daily range): BP systolic 126–149; BP diastolic 86–98; PULSE 64–124; RESP 19–20; TEMP 97.9–98.1; O2SAT 93–95
[2017-03-17] MEDS: LEVOTHYROXINE SODIUM 50 MCG TAB PO SCH (05:05)
[2017-03-17] MEDS: LOW DOSE INSULIN NOVOLIN REGULAR SUPPLEMENTAL SCALE SQ SCH ×4 (05:05→21:44)
[2017-03-17] MEDS: GABAPENTIN 300 MG CAP PO SCH ×2 (08:55→21:40)
[2017-03-17] MEDS: VENLAFAXINE HCL XR 75 MG CAP PO SCH (08:55)
[2017-03-17] MEDS: DILTIAZEM-CD 240 MG CAP ER PO SCH (08:55)
[2017-03-17] MEDS: CHOLECALCIFEROL (VIT D3) 5000 UNIT CAP PO SCH (08:55)
[2017-03-17] MEDS: ENALAPRIL MALEATE 5 MG TAB PO SCH ×2 (08:55→21:40)
[2017-03-17] MEDS: GLIMEPIRIDE 2 MG TAB PO SCH (08:56)
[2017-03-17] MEDS: SODIUM CHLORIDE 0.9% FLUSH 10 ML FLUSH IV FLUSH SCH ×2 (08:56→21:43)
[2017-03-17] MEDS: DONEPEZIL HCL 5 MG TAB PO SCH (08:56)
[2017-03-17] MEDS: APIXABAN 2.5 MG TABLET PO SCH ×2 (08:56→21:40)
[2017-03-17] MEDS: BETAMETHASONE/CLOTRIMAZOLE CREAM 15 GM TOPICAL SCH ×2 (08:59→21:00)
[2017-03-17] MEDS: METOPROLOL SUCCINATE 50 MG EXTENDED RELEASE TAB PO SCH ×2 (10:49→21:40)
[2017-03-17] MEDS: ACETAMINOPHEN/CODEINE 300 MG/30 MG TAB PO PRN ×2 (10:49→21:40)
--- NOTE | 2017-03-17 12:44 | HHI.PR ---
Subjective Remarks cardizem drip off had tachacardia thia am toporol increased Objective Vital Signs Date Time Temp Pulse Resp B/P Pulse Ox O2 Delivery O2 Flow Rate FiO2 03/17/17 09:00 121 03/17/17 08:00 Room Air 03/17/17 08:00 122 03/17/17 07:00 106 03/17/17 07:00 110 03/17/17 06:00 98 03/17/17 05:00 98 03/17/17 04:00 96 136/94 03/17/17 04:00 96 03/17/17 03:00 Room Air 03/17/17 03:00 92 03/17/17 02:00 92 03/17/17 01:00 94 03/17/17 00:00 90 141/92 03/17/17 00:00 90 03/16/17 23:00 94 03/16/17 23:00 Room Air 03/16/17 22:00 98 03/16/17 21:00 94 03/16/17 20:00 110 156/99 03/16/17 20:00 110 03/16/17 19:00 134 03/16/17 19:00 Room Air 03/16/17 17:10 98.4 71 20 157/95 96 03/16/17 17:08 71 03/16/17 15:00 94 03/16/17 13:00 98 03/16/17 12:38 98.0 84 18 136/89 95 I/O 03/16/17 03/16/17 03/16/17 03/17/17 03/17/17 03/17/17 07:00 15:00 23:00 07:00 15:00 23:00 Intake Total 240 ml 240 ml Balance 240 ml 240 ml Intake Oral 240 ml 240 ml # Voids 2 4 2 # Bowel Movements 1 Result Diagram: 03/16/17 0555 03/16/17 0555 Objective Remarks GENERAL: SKIN: Warm and dry. HEAD: Atraumatic. Normocephalic. EYES: Pupils equal and round. No scleral icterus. No injection or drainage. ENT: No nasal bleeding or discharge. Mucous membranes pink and moist. NECK: Trachea midline. No JVD. CARDIOVASCULAR: Regular rate and rhythm. RESPIRATORY: No accessory muscle use. Clear to auscultation. Breath sounds equal bilaterally. GASTROINTESTINAL: Abdomen soft, non-tender, nondistended. Hepatic and splenic margins not palpable. MUSCULOSKELETAL: Extremities without clubbing, cyanosis, or edema. No obvious deformities. NEUROLOGICAL: Awake and alert. No obvious cranial nerve deficits. Motor grossly within normal limits. Five out of 5 muscle strength in the arms and legs. Normal speech. PSYCHIATRIC: Appropriate mood and affect; insight and judgment normal. Assessment and Plan Problem List: (1) Diabetes 1.5, managed as type 2 Status: Chronic Plan: ss insuline coverage resume po meds renal function has declined will dc metformin and follow sugars closely (2) Hypertension Status: Chronic Plan: continue home meds add cardizem and vasotec (3) New onset a-fib Status: Acute Plan: cardizem and toporol for rate control will need coag if rhythm persists Assessment and Plan afib rvr stabilized Discussed Condition With patient Discharge Planning to snf once reate stabilized toprol increased Physician Attestation i have examined this patient and reviewed their findings and agree with the stated treatment plans Dereje Thorne DO March 17, 2017 12:44
[2017-03-17] MEDS: LORazepam 0.5 MG TAB PO PRN (16:47)
[2017-03-17 19:09] LABS: BLOOD, URINE NEG (NEG); COMMENT (UR) CULTURE INDICATED; CULTURE IF INDICATED CULTURE INDICATED; GLUCOSE,URINE 1000 mg/dL (NEG); HYALINE CAST, URINE 1 /lpf (RARE); KETONE, URINE NEG (NEG); MUCUS URINE FEW /lpf (OCC); NITRITE,URINE NEG (NEG); SQUAMOUS EPITHELIAL CELL URINE 4 /hpf (0-5); URINE COLOR YELLOW (YELLW/STRAW)
[2017-03-18] VITALS (25 sets, daily range): BP systolic 127–151; BP diastolic 81–109; PULSE 65–137; RESP 18–20; TEMP 98–98.4; O2SAT 93–96
[2017-03-18] MEDS: LORazepam 0.5 MG TAB PO PRN ×2 (00:32→20:38)
[2017-03-18 04:43] LABS: AUTOMATED NEUTROPHIL # 4.7 TH/MM3 (1.8-7.7); BASOPHIL # 0.1 TH/MM3 (0-0.2); BASOPHIL % 1.3 % (0.0-2.0); EOSINOPHIL # 0.2 TH/MM3 (0-0.4); EOSINOPHIL % 2.5 % (0.0-4.0); HEMO FLAGS DIFF FINAL; LYMPH % 20.2 % (9.0-44.0); LYMPHOCYTE # 1.5 TH/MM3 (1.0-4.8); MEAN CELL VOLUME 84.7 FL (80.0-100.0); MEAN CORPUSCULAR HEMOGLOBIN 26.3 PG (27.0-34.0); MEAN CORPUSCULAR HGB CONC 31.1 % (32.0-36.0); MONO % 11.9 % (0.0-8.0); NEUT % 64.1 % (16.0-70.0); PLATELET COUNT 268 TH/MM3 (150-450); RED BLOOD COUNT 4.13 MIL/MM3 (4.00-5.30); RED CELL DISTRIBUTION WIDTH 16.5 % (11.6-17.2); WHITE BLOOD COUNT 7.4 TH/MM3 (4.0-11.0)
[2017-03-18 05:04] LABS: BICARBONATE 28.1 MEQ/L (21.0-32.0); POTASSIUM 3.8 MEQ/L (3.5-5.1)
[2017-03-18] MEDS: LEVOTHYROXINE SODIUM 50 MCG TAB PO SCH (05:34)
[2017-03-18] MEDS: LOW DOSE INSULIN NOVOLIN REGULAR SUPPLEMENTAL SCALE SQ SCH ×4 (06:24→20:40)
[2017-03-18] MEDS: DILTIAZEM-CD 240 MG CAP ER PO SCH (07:51)
[2017-03-18] MEDS: CHOLECALCIFEROL (VIT D3) 5000 UNIT CAP PO SCH (07:51)
[2017-03-18] MEDS: BETAMETHASONE/CLOTRIMAZOLE CREAM 15 GM TOPICAL SCH ×2 (07:51→20:38)
[2017-03-18] MEDS: METOPROLOL SUCCINATE 50 MG EXTENDED RELEASE TAB PO SCH ×2 (07:52→20:38)
[2017-03-18] MEDS: ENALAPRIL MALEATE 5 MG TAB PO SCH ×2 (07:52→20:37)
[2017-03-18] MEDS: DONEPEZIL HCL 5 MG TAB PO SCH (07:52)
[2017-03-18] MEDS: VENLAFAXINE HCL XR 75 MG CAP PO SCH (07:52)
[2017-03-18] MEDS: GLIMEPIRIDE 2 MG TAB PO SCH (07:52)
[2017-03-18] MEDS: APIXABAN 2.5 MG TABLET PO SCH ×2 (07:52→20:38)
[2017-03-18] MEDS: GABAPENTIN 300 MG CAP PO SCH ×2 (07:52→20:37)
[2017-03-18] MEDS: SODIUM CHLORIDE 0.9% FLUSH 10 ML FLUSH IV FLUSH SCH ×2 (07:53→20:37)
[2017-03-18] MEDS: FLUTICASONE PROPIONATE 50 MCG/ACT 16 GM NASAL SPRAY EACH NARE SCH (08:16)
[2017-03-18] MEDS ORDERED: METOPROLOL SUCCINATE 50 MG EXTENDED RELEASE TAB PO ONE (10:30)
--- NOTE | 2017-03-18 11:31 | HHI.PR ---
Subjective Remarks cardizem drip off had tachacardia thia am toporol increased again now 100mg bid will add anxiolytic Objective Vital Signs Date Time Temp Pulse Resp B/P Pulse Ox O2 Delivery O2 Flow Rate FiO2 03/18/17 06:00 90 03/18/17 05:00 90 03/18/17 04:00 98.4 96 18 140/90 95 03/18/17 04:00 96 03/18/17 04:00 Room Air 03/18/17 03:00 94 03/18/17 02:00 90 03/18/17 01:00 74 03/18/17 00:00 Room Air 03/18/17 00:00 65 03/18/17 00:00 98.3 65 18 127/93 96 03/17/17 23:00 64 03/17/17 22:00 79 03/17/17 21:00 75 03/17/17 20:00 98.0 76 20 129/86 95 03/17/17 20:00 76 03/17/17 20:00 Room Air 03/17/17 18:08 88 03/17/17 17:20 95 03/17/17 16:15 98.1 67 19 126/91 95 03/17/17 16:00 75 03/17/17 15:00 Room Air 03/17/17 15:00 68 03/17/17 14:00 75 03/17/17 13:00 94 03/17/17 12:00 110 I/O 03/17/17 03/17/17 03/17/17 03/18/17 03/18/17 03/18/17 06:59 14:59 22:59 06:59 14:59 22:59 Intake Total 240 ml 720 ml Balance 240 ml 720 ml Intake Oral 240 ml 720 ml # Voids 2 5 # Bowel Movements 1 Result Diagram: 03/18/170 03/18/17429 Objective Remarks GENERAL: SKIN: Warm and dry. HEAD: Atraumatic. Normocephalic. EYES: Pupils equal and round. No scleral icterus. No injection or drainage. ENT: No nasal bleeding or discharge. Mucous membranes pink and moist. NECK: Trachea midline. No JVD. CARDIOVASCULAR: Regular rate and rhythm. RESPIRATORY: No accessory muscle use. Clear to auscultation. Breath sounds equal bilaterally. GASTROINTESTINAL: Abdomen soft, non-tender, nondistended. Hepatic and splenic margins not palpable. MUSCULOSKELETAL: Extremities without clubbing, cyanosis, or edema. No obvious deformities. NEUROLOGICAL: Awake and alert. No obvious cranial nerve deficits. Motor grossly within normal limits. Five out of 5 muscle strength in the arms and legs. Normal speech. PSYCHIATRIC: Appropriate mood and affect; insight and judgment normal. Medications and IVs Inpatient Medications Acetaminophen/ Codeine Phosphate (Tylenol-Codeine #3) 1 tab Q8H PRN PO PAIN Last administered on 03/17/17 21:40; Start 03/12/17 at 15:15 Amlodipine Besylate (Norvasc) 5 mg DAILY PO Last administered on 03/13/17 09:01 ; Start 03/13/17 at 09:00; Stop 03/13/17 at 16:25; Status DC Apixaban 2.5 mg 2.5 mg BID PO Last administered on 03/18/17 07:52; Start at 21:00 Betamethasone/ Clotrimazole 1 applic 1 applic BID TOPICAL Last administered on 03/18/17 07:51; Start 03/13/17 at 09:00 Cholecalciferol (Vitamin D3) 5,000 units DAILY PO Last administered on 07:51; Start 03/13/17 at 09:00 Dextrose (D50w (Vial) Inj) 25 ml UNSCH PRN IV PUSH HYPOGLYCEMIA-SEE COMMENTS Last administered on 03/17/17 05:05; Start 03/12/17 at 18:15 Digoxin (Lanoxin Inj) 0.25 mg ONCE ONCE IV PUSH Last administered on 03/12/17 15:09; Start 03/12/17 at 15:00; Stop 03/12/17 at 15:01; Status DC Diltiazem HCl (Cardizem Cd) 240 mg DAILY PO Last administered on 03/18/17 07: 51; Start 03/16/17 at 09:00 Diltiazem HCl 23 mg 23 mg ONCE ONCE IV Last administered on 03/12/17 12:11; Start 03/12/17 at 12:00; Stop 03/12/17 at 12:01; Status DC Diltiazem HCl 5 mg 5 mg BOLUS PRN IV PUSH SEE DOSE INSTRUCTIONS Last administered on 03/15/17 20:36; Start 03/15/17 at 19:00; Stop 03/16/17 at 18:59 ; Status DC Diltiazem HCl/ Sodium Chloride (Cardizem Inj/NS Inj) 125 ml @ 0 mls/hr TITRATE IV Last administered on 03/15/17 20:37; Start 03/15/17 at 19:00 Donepezil HCl (Aricept) 5 mg DAILY PO Last administered on 03/18/17 07:52; Start 03/13/17 at 09:00 Enalapril Maleate (Vasotec) 5 mg BID PO Last administered on 03/18/17 07:52; Start 03/12/17 at 21:00 Fluticasone Propionate (Flonase Lucius Spr) 2 spray DAILY EACH NARE Last administered on 03/18/17 08:16; Start 03/18/17 at 09:00 Gabapentin (Neurontin) 300 mg BID PO Last administered on 03/18/17 07:52; Start 03/12/17 at 21:00 Glimepiride (Amaryl) 2 mg DAILY PO Last administered on 03/18/17 07:52; Start 03/13/17 at 09:00 Glucagon (Glucagon Inj) 1 mg UNSCH PRN OTHER HYPOGLYCEMIA-SEE COMMENTS; Start 03/12/17 at 18:15 Insulin Human Regular 1 1 ACHS SLIDING SCALE SQ Last administered on 21:44; Start 03/12/17 at 21:40 Levothyroxine Sodium (Synthroid) 50 mcg DAILY@06 PO Last administered on 05:34; Start 03/13/17 at 06:00 Lorazepam (Ativan) 1 mg TID PRN PO ANXIETY Last administered on 03/18/17 00:32 ; Start 03/12/17 at 14:30 Magnesium Sulfate/ Dextrose 100 ml @ 100 mls/hr Q1H IV Last administered on 09:17; Start 03/14/17 at 07:00; Stop 03/14/17 at 08:59; Status DC Metformin HCl (Glucophage) 500 mg BIDPC PO Last administered on 03/16/17 18:36 ; Start 03/16/17 at 18:00; Stop 03/17/17 at 08:32; Status DC Metoprolol Succinate (Toprol Xl) 100 mg BID PO ; Start 03/18/17 at 21:00 Naloxone HCl (Narcan Inj) 0.4 mg UNSCH PRN IV SEE LABEL COMMENTS; Start at 14:30 Non-Formulary Medication 5 mg DAILY PO BSM; Start 03/13/17 at 09:00; Stop at 09:00; Status DC Potassium Chloride (KCl) 40 meq ONCE ONCE PO Last administered on 03/15/17 09 :15; Start 03/15/17 at 07:30; Stop 03/15/17 at 07:31; Status DC Sodium Chloride (1/2 NS 1000 ml Inj) 1,000 ml @ 100 mls/hr Q10H IV Last administered on 03/14/17 23:36; Start 03/13/17 at 08:30; Stop 03/15/17 at 07:25 ; Status DC Sodium Chloride (NS 1000 ml Inj) 1,000 ml @ 84 mls/hr [id number] IV ; Start at 08:00; Stop 03/14/17 at 06:59; Status DC Sodium Chloride (NS 500 ml Inj) 500 ml @ 500 mls/hr BOLUS ONCE IV ; Start 03/12 at 12:15; Stop 03/12/17 at 13:14; Status DC Sodium Chloride (NS Flush) 2 ml BID IV FLUSH Last administered on 03/18/17 07: 53; Start 03/12/17 at 21:00 Sodium Phosphate/ Sodium Chloride (Sodium Phosphate Inj/NS Inj) 155 ml @ 38.75 mls/ hr ONCE ONCE IV Last administered on 03/14/17 09:12; Start 03/14/17 at 07:00; Stop 03/14/17 at 10:59; Status DC Venlafaxine HCl (Effexor Xr) 150 mg DAILY PO Last administered on 03/18/17 07: 52; Start 03/13/17 at 09:00 Assessment and Plan Problem List: (1) Diabetes 1.5, managed as type 2 Status: Chronic Plan: ss insuline coverage resume po meds renal function has declined will dc metformin and follow sugars closely (2) Hypertension Status: Chronic Plan: continue home meds add cardizem and vasotec (3) New onset a-fib Status: Acute Plan: cardizem and toporol for rate control will need coag if rhythm persists (4) Anxiety Status: Acute Plan: add ativan Assessment and Plan afib rvr stabilized Discussed Condition With pt and nursing Discharge Planning [facility] Physician Attestation I have examined this patient and reviewed the findings and diagnosis and I agree with the plan of care Dereje Thorne DO March 18, 2017 11:31
[2017-03-18] MEDS: ACETAMINOPHEN/CODEINE 300 MG/30 MG TAB PO PRN ×2 (11:55→20:38)
[2017-03-18] MEDS: LORazepam 0.5 MG TAB PO SCH ×2 (14:14→21:43)
[2017-03-19] VITALS (23 sets, daily range): BP systolic 107–149; BP diastolic 70–112; PULSE 65–132; RESP 16–18; TEMP 97.6–98.9; O2SAT 94–97
[2017-03-19] MEDS: LORazepam 0.5 MG TAB PO SCH ×3 (04:59→20:29)
[2017-03-19] MEDS: LEVOTHYROXINE SODIUM 50 MCG TAB PO SCH (04:59)
[2017-03-19] MEDS: ACETAMINOPHEN/CODEINE 300 MG/30 MG TAB PO PRN ×3 (04:59→20:29)
[2017-03-19] MEDS: LOW DOSE INSULIN NOVOLIN REGULAR SUPPLEMENTAL SCALE SQ SCH ×4 (06:10→20:35)
[2017-03-19 07:01] LABS: BICARBONATE 29.1 MEQ/L (21.0-32.0); POTASSIUM 3.5 MEQ/L (3.5-5.1)
[2017-03-19] MEDS: DONEPEZIL HCL 5 MG TAB PO SCH (09:19)
[2017-03-19] MEDS: METOPROLOL SUCCINATE 50 MG EXTENDED RELEASE TAB PO SCH ×2 (09:19→20:29)
[2017-03-19] MEDS: ENALAPRIL MALEATE 5 MG TAB PO SCH ×2 (09:19→20:29)
[2017-03-19] MEDS: GLIMEPIRIDE 2 MG TAB PO SCH (09:19)
[2017-03-19] MEDS: VENLAFAXINE HCL XR 75 MG CAP PO SCH (09:19)
[2017-03-19] MEDS: APIXABAN 2.5 MG TABLET PO SCH ×2 (09:20→20:29)
[2017-03-19] MEDS: GABAPENTIN 300 MG CAP PO SCH ×2 (09:20→20:29)
[2017-03-19] MEDS: SODIUM CHLORIDE 0.9% FLUSH 10 ML FLUSH IV FLUSH SCH ×2 (09:20→20:30)
[2017-03-19] MEDS: CHOLECALCIFEROL (VIT D3) 5000 UNIT CAP PO SCH (09:20)
[2017-03-19] MEDS: FLUTICASONE PROPIONATE 50 MCG/ACT 16 GM NASAL SPRAY EACH NARE SCH (09:20)
[2017-03-19] MEDS: BETAMETHASONE/CLOTRIMAZOLE CREAM 15 GM TOPICAL SCH ×2 (09:21→20:30)
[2017-03-19] MEDS: DILTIAZEM-CD 180 MG CAP ER PO SCH (09:29)
--- NOTE | 2017-03-19 10:13 | HHI.PR ---
Subjective Remarks Patient seen at bedside. Resting comfortably. AFIB at 70-130. Dr. Eaton consulted and managing. Objective Vital Signs Date Time Temp Pulse Resp B/P Pulse Ox O2 Delivery O2 Flow Rate FiO2 03/19/17 06:00 96 03/19/17 05:00 107 03/19/17 04:00 Room Air 03/19/17 04:00 111 03/19/17 04:00 98.2 111 18 131/89 95 03/19/17 03:00 82 03/19/17 02:00 96 03/19/17 01:00 82 03/19/17 00:00 Room Air 03/19/17 00:00 88 03/19/17 00:00 97.8 88 18 134/88 97 03/18/17 23:00 82 03/18/17 22:00 87 03/18/17 21:00 90 03/18/17 20:00 98.0 88 20 146/83 96 03/18/17 20:00 Room Air 03/18/17 20:00 88 03/18/17 18:30 96 03/18/17 17:49 98 03/18/17 16:18 88 03/18/17 15:55 96 Room Air 03/18/17 15:45 98.1 87 19 137/81 95 03/18/17 15:00 98 03/18/17 14:12 98 03/18/17 13:05 88 03/18/17 12:00 112 03/18/17 11:00 98.3 120 20 145/89 93 03/18/17 11:00 93 Room Air 03/18/17 11:00 119 I/O 03/18/17 03/18/17 03/18/17 03/19/17 03/19/17 03/19/17 06:59 14:59 22:59 06:59 14:59 22:59 Intake Total 720 ml 490 ml Output Total 750 ml 700 ml Balance -30 ml -210 ml Intake Oral 720 ml 480 ml IV Total 10 ml Output Urine Total 750 ml 700 ml # Voids 4 # Bowel Movements 2 0 Result Diagram: 03/18/17 0430 03/19/17 0625 Objective Remarks GENERAL: Alert and cooperative SKIN: Warm and dry. HEAD: Normocephalic. EYES: No scleral icterus. No injection or drainage. NECK: Supple, trachea midline. No JVD or lymphadenopathy. CARDIOVASCULAR: Regular rate and rhythm without murmurs, gallops, or rubs. RESPIRATORY: Breath sounds equal bilaterally. No accessory muscle use. GASTROINTESTINAL: Abdomen soft, non-tender, nondistended. MUSCULOSKELETAL: No cyanosis, or edema. BACK: Nontender without obvious deformity. No CVA tenderness. Medications and IVs Current Medications Medications (Trade) Dose Ordered Sig/Trudy Route Start Time Stop Time Status Last Admin (NS Flush) 2 ml UNSCH PRN IV FLUSH 03/12/17 14:30 (NS Flush) 2 ml BID IV FLUSH 03/12/17 21:00 03/19/17 09:20 (Narcan Inj) 0.4 mg UNSCH PRN IV 03/12/17 14:30 (Vitamin D3) 5,000 units DAILY PO 03/13/17 09:00 03/19/17 09:20 (Aricept) 5 mg DAILY PO 03/13/17 09:00 03/19/17 09:19 (Neurontin) 300 mg BID PO 03/12/17 21:00 03/19/17 09:20 (Amaryl) 2 mg DAILY PO 03/13/17 09:00 03/19/17 09:19 (Synthroid) 50 mcg DAILY@06 PO 03/13/17 06:00 03/19/17 04:59 (Ativan) 1 mg TID PRN PO 03/12/17 14:30 03/18/17 20:38 (Effexor Xr) 150 mg DAILY PO 03/13/17 09:00 03/19/17 09:19 (Tylenol-Codeine #3) 1 tab Q8H PRN PO 03/12/17 15:15 03/19/17 04:59 (Vasotec) 5 mg BID PO 03/12/17 21:00 03/19/17 09:19 (D50w (Vial) Inj) 25 ml UNSCH PRN IV PUSH 03/12/17 18:15 03/17/17 05:05 (Glucagon Inj) 1 mg UNSCH PRN OTHER 03/12/17 18:15 (Lotrisone Cream) 1 applic BID TOPICAL 03/13/17 09:00 03/19/17 09:21 (Eliquis) 2.5 mg BID PO 03/13/17 21:00 03/19/17 09:20 (Flonase Lucius Spr) 2 spray DAILY EACH NARE 03/18/17 09:00 03/19/17 09:20 (Toprol Xl) 100 mg BID PO 03/18/17 21:00 03/19/17 09:19 (Ativan) 0.5 mg Q8HR PO 03/18/17 14:00 03/19/17 04:59 (Cardizem Cd) 360 mg DAILY PO 03/19/17 09:00 03/19/17 09:29 Assessment and Plan Problem List: (1) Atrial fibrillation with RVR Status: Acute Plan: Cardiology consulted and managing. Diltiazem gtt restarted. Plan to wean and titrate PO medication. (2) Diabetes 1.5, managed as type 2 Status: Chronic Plan: Continue current medication. BS AC and HS. BS 139-269. Diabetic diet. Januvia started. (3) Hypertension Status: Chronic Plan: B/P 147/89 Cardizem increased, on metoprolol and Vasotec. Will continue current regimen and monitor (4) Hypothyroid Status: Chronic Plan: On replacement . TSH, T4 level ordered and WNL (5) Hyperlipidemia Status: Chronic Plan: Not on statin. Lipid panel ordered and WNL (6) Alzheimer disease Status: Chronic Plan: Patient alert oriented X 2. Cooperative. Head CT with no acute findings. Continue Aricept. (7) Fall Status: Acute Plan: Patient was found on floor prior to coming in CPK ordered and WNL. (8) Electrolyte abnormality Status: Acute Plan: Resolved Assessment and Plan Assessment and plan discussed with Dr. Thorne Labs ordered. Awaiting cardiology assessment Discussed Condition With Nursing Physician Attestation I and the LOADER OPERATOR have both examined this patient and reviewed this note and I agree with these findings and plan of care. Lesvia Leal LOADER OPERATOR March 19, 2017 10:13
--- NOTE | 2017-03-19 17:19 | PD.CARD.PN ---
Subjective Subjective Remarks No CP or SOB, feels tired, sat in the chair earlier Objective Medications Current Medications Medications (Trade) Dose Ordered Sig/Trudy Route Start Time Stop Time Status Last Admin (NS Flush) 2 ml UNSCH PRN IV FLUSH 03/12/17 14:30 (NS Flush) 2 ml BID IV FLUSH 03/12/17 21:00 03/19/17 09:20 (Narcan Inj) 0.4 mg UNSCH PRN IV 03/12/17 14:30 (Vitamin D3) 5,000 units DAILY PO 03/13/17 09:00 03/19/17 09:20 (Aricept) 5 mg DAILY PO 03/13/17 09:00 03/19/17 09:19 (Neurontin) 300 mg BID PO 03/12/17 21:00 03/19/17 09:20 (Amaryl) 2 mg DAILY PO 03/13/17 09:00 03/19/17 09:19 (Synthroid) 50 mcg DAILY@06 PO 03/13/17 06:00 03/19/17 04:59 (Ativan) 1 mg TID PRN PO 03/12/17 14:30 03/18/17 20:38 (Effexor Xr) 150 mg DAILY PO 03/13/17 09:00 03/19/17 09:19 (Tylenol-Codeine #3) 1 tab Q8H PRN PO 03/12/17 15:15 03/19/17 12:40 (Vasotec) 5 mg BID PO 03/12/17 21:00 03/19/17 09:19 (D50w (Vial) Inj) 25 ml UNSCH PRN IV PUSH 03/12/17 18:15 03/17/17 05:05 (Glucagon Inj) 1 mg UNSCH PRN OTHER 03/12/17 18:15 (Lotrisone Cream) 1 applic BID TOPICAL 03/13/17 09:00 03/19/17 09:21 (Eliquis) 2.5 mg BID PO 03/13/17 21:00 03/19/17 09:20 (Flonase Lucius Spr) 2 spray DAILY EACH NARE 03/18/17 09:00 03/19/17 09:20 (Toprol Xl) 100 mg BID PO 03/18/17 21:00 03/19/17 09:19 (Ativan) 0.5 mg Q8HR PO 03/18/17 14:00 03/19/17 15:01 (Cardizem Cd) 360 mg DAILY PO 03/19/17 09:00 03/19/17 09:29 (Januvia) 25 mg DAILY PO 03/19/17 12:00 03/19/17 13:05 Vital Signs / I&O Vital Signs Date Time Temp Pulse Resp B/P Pulse Ox O2 Delivery O2 Flow Rate FiO2 03/19/17 14:23 65 03/19/17 13:12 88 03/19/17 12:18 98.1 84 16 139/86 94 03/19/17 12:18 94 Room Air 03/19/17 12:18 105 03/19/17 11:35 117 03/19/17 10:00 132 03/19/17 09:00 132 03/19/17 09:00 97.8 132 18 144/112 96 03/19/17 09:00 96 Room Air 03/19/17 06:00 96 03/19/17 05:00 107 03/19/17 04:00 Room Air 03/19/17 04:00 111 03/19/17 04:00 98.2 111 18 131/89 95 03/19/17 03:00 82 03/19/17 02:00 96 03/19/17 01:00 82 03/19/17 00:00 Room Air 03/19/17 00:00 88 03/19/17 00:00 97.8 88 18 134/88 97 03/18/17 23:00 82 03/18/17 22:00 87 03/18/17 21:00 90 03/18/17 20:00 98.0 88 20 146/83 96 03/18/17 20:00 Room Air 03/18/17 20:00 88 03/18/17 18:30 96 03/18/17 17:49 98 I/O 03/18/17 03/18/17 03/18/17 03/19/17 03/19/17 03/19/17 07:00 15:00 23:00 07:00 15:00 23:00 Intake Total 720 ml 490 ml Output Total 750 ml 700 ml Balance -30 ml -210 ml Intake Oral 720 ml 480 ml IV Total 10 ml Output Urine Total 750 ml 700 ml # Voids 4 # Bowel Movements 2 0 Physical Exam GENERAL: In NAD, mildly confused SKIN: Warm and dry. HEAD: Normocephalic. EYES: No scleral icterus. No injection or drainage. NECK: Supple, trachea midline. No JVD or lymphadenopathy. CARDIOVASCULAR: irregular rate and rhythm without murmurs, gallops, or rubs. RESPIRATORY: Breath sounds equal bilaterally. No accessory muscle use. GASTROINTESTINAL: Abdomen soft, non-tender, nondistended. MUSCULOSKELETAL: No cyanosis, or edema. Laboratory Laboratory Tests Test 03/19/17 06:25 Sodium Level 139 MEQ/L Potassium Level 3.5 MEQ/L Chloride Level 103 MEQ/L Carbon Dioxide Level 29.1 MEQ/L Anion Gap 7 MEQ/L Blood Urea Nitrogen 29 MG/DL Creatinine 1.20 MG/DL Estimat Glomerular Filtration 43 ML/MIN Rate Random Glucose 113 MG/DL Calcium Level 9.1 MG/DL Imaging Last Impressions Chest X-Ray 03/12/17 1202 Signed Impressions: Service Date/Time: Sunday, March 12, 2017 12:12 - CONCLUSION: 1. Cardiomegaly with increased pulmonary vascularity. 2. Left basilar atelectasis/scarring. Bony Obrien MD Head CT 03/12/17 0000 Signed Impressions: Service Date/Time: Sunday, March 12, 2017 13:09 - CONCLUSION: Negative for an acute process. Kee Robles MD FACR Assessment and Plan Problem List: (1) Atrial fibrillation with RVR (2) Diabetes 1.5, managed as type 2 (3) Hypertension (4) Hyperlipidemia (5) Alzheimer disease (6) Hypothyroid Assessment and Plan Rate controlled with titration of long-acting diltiazem. Continue rate control with PO diltiazem and metoprolol. BP improving. Continue anticoagulation with low dose Eliquis. Continue monitoring. No plans for cardioversion at this time, plan to continue rate control and anticoagulation. Increase activity. Anticipate discharge soon. Gracie Eaton MD March 19, 2017 17:19
[2017-03-19] MEDS: LORazepam 0.5 MG TAB PO PRN (23:57)
[2017-03-20] VITALS (13 sets, daily range): BP systolic 141–153; BP diastolic 90–96; PULSE 64–100; RESP 16–18; TEMP 97.9–98.9; O2SAT 93–95
[2017-03-20 05:11] LABS: HEMATOCRIT 34.3 % (35.0-46.0); MEAN CELL VOLUME 84.1 FL (80.0-100.0); MEAN CORPUSCULAR HEMOGLOBIN 26.2 PG (27.0-34.0); MEAN CORPUSCULAR HGB CONC 31.2 % (32.0-36.0); PLATELET COUNT 296 TH/MM3 (150-450); RED BLOOD COUNT 4.08 MIL/MM3 (4.00-5.30); RED CELL DISTRIBUTION WIDTH 16.6 % (11.6-17.2); REVIEW FLAG FINAL; WHITE BLOOD COUNT 9.5 TH/MM3 (4.0-11.0)
[2017-03-20 05:35] LABS: BICARBONATE 28.4 MEQ/L (21.0-32.0); MAGNESIUM 1.8 MG/DL (1.5-2.5); POTASSIUM 4.1 MEQ/L (3.5-5.1)
[2017-03-20] MEDS: LOW DOSE INSULIN NOVOLIN REGULAR SUPPLEMENTAL SCALE SQ SCH ×2 (05:36→11:00)
[2017-03-20] MEDS: ACETAMINOPHEN/CODEINE 300 MG/30 MG TAB PO PRN (05:50)
[2017-03-20] MEDS: LEVOTHYROXINE SODIUM 50 MCG TAB PO SCH (05:50)
[2017-03-20] MEDS: LORazepam 0.5 MG TAB PO SCH ×2 (05:50→12:34)
[2017-03-20] MEDS: VENLAFAXINE HCL XR 75 MG CAP PO SCH (08:27)
[2017-03-20] MEDS: DILTIAZEM-CD 180 MG CAP ER PO SCH (08:27)
[2017-03-20] MEDS: FLUTICASONE PROPIONATE 50 MCG/ACT 16 GM NASAL SPRAY EACH NARE SCH (08:28)
[2017-03-20] MEDS: SODIUM CHLORIDE 0.9% FLUSH 10 ML FLUSH IV FLUSH SCH (08:28)
[2017-03-20] MEDS: BETAMETHASONE/CLOTRIMAZOLE CREAM 15 GM TOPICAL SCH (08:28)
[2017-03-20] MEDS: GABAPENTIN 300 MG CAP PO SCH (08:28)
[2017-03-20] MEDS: CHOLECALCIFEROL (VIT D3) 5000 UNIT CAP PO SCH (08:28)
[2017-03-20] MEDS: DONEPEZIL HCL 5 MG TAB PO SCH (08:28)
[2017-03-20] MEDS: GLIMEPIRIDE 2 MG TAB PO SCH (08:28)
[2017-03-20] MEDS: APIXABAN 2.5 MG TABLET PO SCH (08:28)
[2017-03-20] MEDS: METOPROLOL SUCCINATE 50 MG EXTENDED RELEASE TAB PO SCH (08:28)
[2017-03-20] MEDS ORDERED: PILL SPLITTER OTHER PRN (08:30)
[2017-03-20] MEDS ORDERED: CARD180C5 PO (08:32)
[2017-03-20] MEDS ORDERED: FLUT50SP EACH NARE (08:32)
[2017-03-20] MEDS ORDERED: ENAL2.5T40 PO (08:32)
[2017-03-20] MEDS ORDERED: SITA25 PO (08:32)
[2017-03-20] MEDS ORDERED: APIX2.5T PO (08:32)
--- NOTE | 2017-03-20 08:38 | HHI.DS ---
Discharge Summary Admission Date March 12, 2017 at 13:45 Admitting Diagnosis Afib RVR Brief History 81yo F with PMH of HTN, HLD, hypothyroidism, DM presents to the ED in afib RVR. Pt was found on the floor at her home by relative and was too weak to get up. Pt does not remember what happened or if she fell from her bed. Pt is AAOx3 and is not complaining of anything. Pt was found in afib in 170s and given cardizem 20mg IV. Pt was in afib in the 130s when she arrived in the ED. Pt given cardizem 23mg IV and HR was in the 80s to 90s. Denies any fever, chest pain, sob, n/v, abdominal pain, focal weakness or numbness. CBC/BMP: 03/20/17 0500 03/20/17 0500 Significant Findings Laboratory Tests Test 03/17/17 03/18/17 03/19/17 03/20/17 18:36 04:30 06:25 05:00 Urine Protein 30 mg/dL (NEG-TRACE) Urine Glucose (UA) 1000 mg/dL (NEG) Urine Leukocyte Esterase SMALL (NEG) Urine WBC 12 /hpf (0-5) Urine Mucus FEW /lpf (OCC) Hemoglobin 10.9 GM/DL 10.7 GM/DL (11.6-15.3) (11.6-15.3) Mean Corpuscular Hemoglobin 26.3 PG 26.2 PG (27.0-34.0) (27.0-34.0) Mean Corpuscular Hemoglobin 31.1 % 31.2 % Concent (32.0-36.0) (32.0-36.0) Monocytes (%) (Auto) 11.9 % (0.0-8.0) Blood Urea Nitrogen 23 MG/DL (7-18) 29 MG/DL (7-18) 35 MG/DL (7-18) Creatinine 1.19 MG/DL 1.20 MG/DL 1.55 MG/DL (0.50-1.00) (0.50-1.00) (0.50-1.00) Estimat Glomerular Filtration 43 ML/MIN (>89) 43 ML/MIN (>89) 32 ML/MIN (>89) Rate Random Glucose 133 MG/DL 113 MG/DL 72 MG/DL (74-106) (74-106) (74-106) Hematocrit 34.3 % (35.0-46.0) PE at Discharge GENERAL: Alert and cooperative SKIN: Warm and dry. HEAD: Normocephalic. EYES: No scleral icterus. No injection or drainage. NECK: Supple, trachea midline. No JVD or lymphadenopathy. CARDIOVASCULAR: Regular rate and rhythm without murmurs, gallops, or rubs. RESPIRATORY: Breath sounds equal bilaterally. No accessory muscle use. GASTROINTESTINAL: Abdomen soft, non-tender, nondistended. MUSCULOSKELETAL: No cyanosis, or edema. BACK: Nontender without obvious deformity. No CVA tenderness. Hospital Course 81yo F with PMH of HTN, HLD, hypothyroidism, DM presents to the ED in afib RVR. Pt was found on the floor at her home by relative and was too weak to get up. Pt does not remember what happened or if she fell from her bed. Pt is AAOx3 and is not complaining of anything. Pt was found in afib in 170s and given cardizem 20mg IV. Pt was in afib in the 130s when she arrived in the ED. Pt given cardizem IV and HR was in the 80s to 90s. Denies any fever, chest pain, sob, n/v, abdominal pain, focal weakness or numbness. During hospitalization patient was IV cardizem which was discontinued and restarted secondary to increased rate. Patient heart rate is now stable in 70's on Cardizem and metoprolol. She also has some CKD and enalapril has been halved. She will need to be followed for her CKD as well at the [facility] rehab. She is discharged to SNF today. Discussed in detail with patient and she is not sure if she will go. Will proceed with discharge to SNF. Pt Condition on Discharge: Stable Discharge Disposition: Discharge to SNF Discharge Instructions DIET: Follow Instructions for: As Tolerated, No Restrictions Activities you can perform: Regular-No Restrictions New Medications: Enalapril (Vasotec) 2.5 Mg Tab 2.5 MG PO BID Blood Pressure Management #60 Ref 0 TAB Apixaban (Eliquis) 2.5 Mg Tab 2.5 MG PO BID Blood Clot Prevention #60 TAB Diltiazem CD 24 HR (Cardizem CD 24 HR) 180 Mg Caper 360 MG PO DAILY Blood Pressure Management #30 CAP Fluticasone Nasal [place] (Fluticasone Nasal [place]) 50 Mcg/Act Naspr 2 SPRAY EACH NARE DAILY Breathing Treatment #30 BOTTLE Sitagliptin (Januvia) 25 Mg Tab 25 MG PO DAILY Blood Sugar Management #30 TAB Continued Medications: Acetaminophen W/ Codeine (Acetaminophen/Codeine #3 300-30 mg) 1 Tab Tab 1 TAB PO Q8HR Pain Management Cholecalciferol (Vitamin D3) 5,000 Unit Tab 5000 UNITS PO DAILY Nutritional Supplement #1 Ref 0 BOTTLE Donepezil (Donepezil) 5 Mg Tab 5 MG PO DAILY Dementia #30 Ref 0 TAB Gabapentin (Gabapentin) 300 Mg Cap 300 MG PO TID Pain Management #90 Ref 0 CAP Glimepiride (Glimepiride) 2 Mg Tab 2 MG PO DAILY Take with breakfast or first main meal Blood Sugar Management #30 Ref 0 TAB Levothyroxine (Levothyroxine) 50 Mcg Tab 50 MCG PO DAILY Thyroid #30 Ref 0 TAB Lorazepam (Lorazepam) 0.5 Mg Tab 1 MG PO TID PRN ANXIETY Ref 0 TAB Metoprolol Succinate ER 24 HR (Metoprolol Succinate ER 24 HR) 50 Mg Tab 50 MG PO HS Blood Pressure Management #30 Ref 0 TAB Venlafaxine ER 24 HR (Venlafaxine ER 24 HR) 150 Mg Tab 150 MG PO DAILY Depression Control #30 Ref 0 TAB Discontinued Medications: Amlodipine (Amlodipine) 5 Mg Tab 5 MG PO DAILY Blood Pressure Management #30 Ref 0 TAB Dapagliflozin (Farxiga) 5 Mg Tab 5 MG PO DAILY Blood Sugar Management #30 Ref 0 TAB Metformin (Metformin) 1,000 Mg Tab 1000 MG PO BIDPC With meals Blood Sugar Management #60 Ref 0 TAB Tramadol (Tramadol) 50 Mg Tab 100 MG PO Q6HR PRN PAIN Ref 0 TAB Lesvia Grayson March 20, 2017 08:38
[2017-03-20] MEDS ORDERED: ENALAPRIL MALEATE 5 MG TAB PO SCH (09:00)
== END 2017-03-20 13:33 | DRG 310 ==
LOC: NEPC 11:39 → NEDA 13:45 → HCIS 16:20
PROVIDERS: ADMIT Family Medicine; ATTEND Family Medicine
DX: I48.91 Unspecified atrial fibrillation (principal); E11.22 Type 2 diabetes mellitus with diabetic chronic kidney disease; G30.9 Alzheimer's disease, unspecified; F02.80 Dementia in other diseases classified elsewhere, unspecified severity, without behavioral disturbance, psychotic disturbance, mood disturbance, and anxiety; E78.5 Hyperlipidemia, unspecified; E83.42 Hypomagnesemia; F32.9 Major depressive disorder, single episode, unspecified; E03.9 Hypothyroidism, unspecified; F41.9 Anxiety disorder, unspecified; E83.39 Other disorders of phosphorus metabolism; E87.6 Hypokalemia; I12.9 Hypertensive chronic kidney disease with stage 1 through stage 4 chronic kidney disease, or unspecified chronic kidney disease; N18.9 Chronic kidney disease, unspecified; Z79.84 Long term (current) use of oral hypoglycemic drugs
CPT/HCPCS: 70450; 71010; 80048; 80061; 81001; 82550; 82948; 83605; 83735; 84100; 84439; 84443; 84484; 85025; 85027; 85610; 85730; 86850; 86900; 86901; 87040; 87086; 93005; 96374; J1160; J3475